=== PATIENT | male | born 1945 | race Two or more races ===

== ENCOUNTER 2019-09-26 13:11 | Inpatient (IN) | payer MEDICARE, OTHER ==
[~2019-09-26] VITALS: Ht 170.2 cm; Wt 91.6 kg
--- NOTE | 2019-09-26 13:23 | NUR ---
NICOLÁS FROM A [facility]. TO ER BED 12. AAOX1. NOT IN RESP DISTRESS, BREATHING EVEN AND UNLABORED. AMBULATORY. BROUGHT IN FOR ALTRERED MENTAL STATUS.PER EMS REPORT, PT IS BASELINE AAOX3. PT IS NOTED JITTERY, TWITCHING AND CANT STAY STILL. PT IS VERBALLY RESPONSIVE, COMPLIANT AND COOPERATIVE. PT IS C/O MID LOWER BACK PAIN. PT DENIES ANY DRUG USE. AWAITING MD FOR EVAL.
[2019-09-26] MEDS ORDERED: IV NS 0.9% 500 ML BAG IV ONE ×2 (13:30→17:30)
--- NOTE | 2019-09-26 13:37 | NUR ---
PT TO CT KRYSTIAN KNOX
[2019-09-26 13:48] LABS: CALCIUM, SERUM 8.7 mg/dL (8.5-10.1); CARBON DIOXIDE 26 mmol/L (21-32); CHLORIDE 104 mmol/L (98-107); CREATININE 1.4 mg/dL (0.6-1.3); GLUCOSE 177 mg/dL (74-106); POTASSIUM 3.3 mmol/L (3.5-5.1); SODIUM SERUM 141 mmol/L (136-145); UREA NITROGEN, BLOOD 27 mg/dL (7-18)
[2019-09-26 13:58] LABS: SERUM AMMONIA 16 umol/L (11-32)
[2019-09-26 13:59] LABS: ACETAMINOPHEN < 2 ug/ml (10-30); ALANINE AMINOTRANSFERASE 21 U/L (12-78); ALCOHOL, BLOOD < 3 mg/dL (0-0); ALKALINE PHOSPHATASE 115 U/L (46-116); ASPARTATE AMINOTRANSFERASE 33 U/L (15-37); BILIRUBIN,DIRECT 0.4 mg/dL (0.0-0.2); BILIRUBIN,TOTAL 1.9 mg/dL (0.2-1.0); SALICYLATE < 2.8 mg/dL (2.8-20.0); TOTAL PROTEIN, SERUM 7.5 g/dL (6.4-8.2)
--- NOTE | 2019-09-26 14:00 | NUR ---
UNABLE TO OBTAINED HEAD CT AND EKG D/T PT KEEPS MOVING ARROUND AND CANT STAY STILL. MD MADE AWARE AND VERBAL ORDER RECIEVED TO GIVE ATIVAN 1MG IV X 1 DOSE. NOTED AND WILL CARRY OUT
[2019-09-26] MEDS ORDERED: LORAZEPAM INJ 2 MG/ML VIAL IV ONE (14:30)
[2019-09-26 14:42] LABS: BASOPHILS # (AUTO) 0.1 /CMM (0.0-0.2); BASOPHILS % (AUTO) 0.4 % (0.0-2.0); EOSINOPHILS % (AUTO) 1.7 % (0.0-6.0); HEMATOCRIT 50 % (39-51); HEMOGLOBIN 16.6 g/dL (13.5-17.5); LYMPHOCYTES # (AUTO) 1.7 /CMM (0.8-4.8); MEAN CORPUSCULAR HGB CONC 33 g/dl (31.0-36.0); MEAN CORPUSCULAR VOLUME 86 fL (80-96); MONOCYTES # (AUTO) 1.4 /CMM (0.1-1.30); NEUTROPHILS # (AUTO) 13.6 /CMM (1.8-8.9); NEUTROPHILS % (AUTO) 79.9 % (43.0-81.0); PLATELET COUNT (AUTO) 286 /CMM (150-450); RED BLOOD CELL COUNT(AUTO) 5.78 MIL/uL (4.5-6.0)
--- NOTE | 2019-09-26 14:53 | NUR ---
MOVE SHEET SUBMITTED AND CALLED FOR TELE BED.
--- NOTE | 2019-09-26 14:58 | NUR ---
PT TO CT ON ABILIO
[2019-09-26] MEDS ORDERED: MIDAZOLAM HCL 2 MG/2ML VIAL IV ONE ×2 (15:00)
--- NOTE | 2019-09-26 15:09 | NUR ---
BACK FROM CT
[2019-09-26 15:21] LABS: MAGNESIUM 1.7 mg/dL (1.8-2.4)
--- NOTE | 2019-09-26 15:35 | NUR ---
URINE COLLECTED VIA IN AND OUT CATH WITH STRICT STERILE TECHNIQUE OBSERVED DURING PROCEDURE.
--- NOTE | 2019-09-26 15:55 | NUR ---
MAIRA CALLED ITS DR. HIGUERA
--- NOTE | 2019-09-26 16:51 | NUR ---
GOT A BED 105
[2019-09-26] MEDS ORDERED: ESCI10TA PO (16:56)
[2019-09-26] MEDS ORDERED: SITA100T PO (16:56)
[2019-09-26] MEDS ORDERED: LISI40TA4 PO (16:56)
[2019-09-26] MEDS ORDERED: ATOR20TA PO (16:56)
[2019-09-26] MEDS ORDERED: ERGO500014 MT (16:56)
[2019-09-26] MEDS ORDERED: TRAZ-252 PO (16:56)
[2019-09-26] MEDS ORDERED: METO-357 PO (16:56)
[2019-09-26] MEDS ORDERED: TAMS-12 PO (16:56)
[2019-09-26] MEDS ORDERED: FERR325T23 PO (16:56)
[2019-09-26] MEDS ORDERED: ZOLP5TAB8 PO (16:56)
[2019-09-26] MEDS ORDERED: MONT10TA22 PO (16:56)
[2019-09-26] MEDS ORDERED: MAGNESIUM OXIDE 400 MG TABLET PO ONE (17:00)
[2019-09-26] MEDS ORDERED: POTASSIUM CHLORIDE 20 MEQ TAB.PRT.SR PO ONE (17:00)
--- NOTE | 2019-09-26 17:20 | NUR ---
called to give report but no nurse is available.
--- NOTE | 2019-09-26 17:43 | NUR ---
REPORT GIVEN TO JUNE CHAPMAN FOR [place].
--- NOTE | 2019-09-26 17:54 | NUR ---
PT TRANSPORTED TO UNIT ON [facility] WITH EMT AND RN AT BEDSIDED W/ ACLS PROTOCOL. NAD NOTED DURING TRANSPORT. PT AMBULATED W/ ASSSIST FROM RNEY TO BED.
[2019-09-26 18:00] VITALS: BP 128/92
--- NOTE | 2019-09-26 18:00 | NUR ---
RN NOTES RECEIVED PT FROM ER IN ROOM 105, PT IS A/Ox1, CONFUSED , RESTLESS AND JITTERY . UNABLE TO STAY STILL , ON RA, O2 SAT WNL, EXPIRATORY WHEEZING NOTED, ON TELE SR HR IN 90'S, NO SKIN PROBLEM NOTED, R AC IV SITE G22 CLEAN, DRY AND INTACT, SR UP x3, CALL LIGHT WITHIN EASY REACH, BED LOCKED AND IN LOWEST POSITION, WILL ENDOSE TO MORTGAGE LOAN OFFICER NURSE FOR CONTINUITY OF CARE .
[2019-09-26] MEDS ORDERED: LACTULOSE 10 G/15 ML UDC (PYXIS) PO PRN (18:30)
[2019-09-26] MEDS ORDERED: ONDANSETRON HCL/PF 4 MG/2 ML VIAL IVP PRN (18:30)
[2019-09-26] MEDS ORDERED: MAGNESIUM HYDROXIDE 30 ML UDC PO PRN (18:30)
[2019-09-26] MEDS ORDERED: Z GUARD REMEDY 2 OZ OINT TP PRN (18:30)
[2019-09-26] MEDS ORDERED: DEXTROSE 50%-WATER 50 ML DISP.SYRIN IV PRN (18:30)
[2019-09-26] MEDS ORDERED: MAG HYDROX/AL HYDROX/SIMETH 30 ML UDC PO PRN (18:30)
[2019-09-26] MEDS ORDERED: ZOLPIDEM TARTRATE 5 MG TABLET PO PRN (18:30)
--- NOTE | 2019-09-26 19:10 | NUR ---
RN OPENING NOTES: Received pt resting in bed, A&ox1-2. On isolation precautions for Covid, pending results. On room air, O2 sat WNL. No SOB or respiratory distress noted. SR/ST on tele monitor. IV site on RAC #18 and PATRICIA #20 patent and flushing with bolus of NS infusing currently. Tolerating well. Dressings c/d/i. Will do head to toe assessment and skin check. Safety measures in place. Will continue to monitor.
[2019-09-26 20:00] VITALS: BP 144/98
[2019-09-26] MEDS ORDERED: POTASSIUM CHLORIDE 20 MEQ TAB.PRT.SR PO STA (20:35)
--- NOTE | 2019-09-26 20:35 | NUR ---
2034 KRISTEN ROMERO WAS NOTIFIED OF PATIENT'S FREQUENT PVCS WITH ORDER TO GIVE KCL 40 MEQ PO X 1. ORDER NOTED AND CARRIED OUT.
[2019-09-26] MEDS: THIAMINE HCL 100 MG TABLET PO SCH (20:55)
[2019-09-26] MEDS: LORAZEPAM INJ 2 MG/ML VIAL IV PRN (20:55)
[2019-09-26] MEDS: FOLIC ACID 1 MG TABLET PO SCH (20:55)
--- NOTE | 2019-09-26 21:12 | NUR ---
RN NOTE: In pt's room to administer stat KCl order, pt stating, "Let me touch you" while reaching out to touch me. Explained that is not appropriate. He proceeded to ask "Can you stroke it a little? You know if you touch it it will get hard." Explained again that this is not appropriate behavior. Will continue to monitor.
[2019-09-26] MEDS: TAMSULOSIN 0.4 MG CAP.SR.24H PO SCH (22:23)
[2019-09-26] MEDS: ATORVASTATIN 10 MG TABLET PO SCH (22:23)
[2019-09-26] MEDS: BLOOD SUGAR DIAGNOSTIC 1 EACH STRIP IN SCH (22:42)
--- NOTE | 2019-09-26 22:48 | NUR ---
RN NOTE: Pt continues to move arm and kink line where IV bolus is infusing. Started a new line on LH #20 patent and flushed.
[2019-09-26] MEDS: IV D5/0.45 NACL 1,000 ML IV PRN (23:23)
--- NOTE | 2019-09-26 23:46 | NUR ---
RN NOTE: Pt attempting to climb out of bed, removing gown, removing NC and agitated after receiving Ativan and Ambien PRNs. Paged Devika, glue bone drier and received orders for restraints. Restraints placed. Will continue to monitor.
[2019-09-27] VITALS: BP 131/85
[2019-09-27] MEDS: LORAZEPAM INJ 2 MG/ML VIAL IV PRN ×2 (01:20→10:07)
[2019-09-27 04:00] VITALS: BP 116/59
--- NOTE | 2019-09-27 06:44 | NUR ---
RN CLOSING NOTES: Pt remains on 2LPM NC, tolerating well. Isolation precautions still in place. No SOB or respiratory distress noted throughout shift. No acute changes noted throughout shift. SR with couplet PVC on tele monitor. IVF of D5 1/2NS infusing in RH at 75ml/hr tolerating well. Kept clean and dry. All meds administered as ordered. Safety measures in place. Will endorse to AM nurse for [place].
[2019-09-27 06:57] LABS: BASOPHILS # (AUTO) 0.1 /CMM (0.0-0.2); BASOPHILS % (AUTO) 0.5 % (0.0-2.0); EOSINOPHILS % (AUTO) 0.7 % (0.0-6.0); HEMATOCRIT 43 % (39-51); LYMPHOCYTES # (AUTO) 1.2 /CMM (0.8-4.8); LYMPHOCYTES % (AUTO) 9.7 % (20.0-44.0); MEAN CORPUSCULAR HGB CONC 33 g/dl (31.0-36.0); MEAN CORPUSCULAR VOLUME 86 fL (80-96); NEUTROPHILS % (AUTO) 81.1 % (43.0-81.0); PLATELET COUNT (AUTO) 199 /CMM (150-450); RED BLOOD CELL COUNT(AUTO) 4.97 MIL/uL (4.5-6.0); WHITE BLOOD COUNT (AUTO) 12.3 K/uL (4.3-11.0)
[2019-09-27 07:11] LABS: THYROID STIMULATING HORMONE 0.636 uIU/mL (0.358-3.74)
[2019-09-27 07:15] LABS: CALCIUM, SERUM 7.9 mg/dL (8.5-10.1); CREATININE 1.2 mg/dL (0.6-1.3); MAGNESIUM 1.9 mg/dL (1.8-2.4); PHOSPHORUS 2.8 mg/dL (2.5-4.9); POTASSIUM 3.8 mmol/L (3.5-5.1)
[2019-09-27 08:00] VITALS: BP 136/73
[2019-09-27] MEDS: BLOOD SUGAR DIAGNOSTIC 1 EACH STRIP IN SCH ×4 (08:10→21:36)
[2019-09-27] MEDS: PANTOPRAZOLE 40 MG TABLET.DR PO SCH (08:11)
[2019-09-27] MEDS: THIAMINE HCL 100 MG TABLET PO SCH (08:35)
[2019-09-27] MEDS: LINAGLIPTIN 5 MG TABLET PO SCH (08:35)
[2019-09-27] MEDS: FERROUS SULFATE (325 MG) 325 MG/TAB TABLET PO SCH (08:35)
[2019-09-27] MEDS: MONTELUKAST SODIUM (10MG) 10 MG TABLET PO SCH (08:35)
[2019-09-27] MEDS: LISINOPRIL (20MG) 20 MG TABLET PO SCH (08:37)
[2019-09-27] MEDS: INSULIN REGULAR, HUMAN 100 UNIT/ML 3 ML VIAL SQ PRN ×3 (08:46→21:38)
[2019-09-27] MEDS ORDERED: SITAGLIPTIN PHOSPHATE 50 MG TABLET PO SCH (09:00)
--- NOTE | 2019-09-27 09:01 | NUR ---
RN OPENING NOTES: RECEIVED PT IN BED, NO SIGNS OF RESPIRATORY DISTRESS, BREATHING EVEN AND LABORED, PT IS ON NC 2L WITH O2 98%. PT IS A/O X 3, ON TELE MONITOR SR-ST. IV R AC #18, R UPPER #20. PTS BED IS IN THE LOWEST POSITION, LOCKED SIDE RAILS ARE UP, CALL LIGHT IS WITHIN REACH, PT IS WITH THE SITTER. WILL CONTINUE TO MONITOR CLOSELY.
[2019-09-27] MEDS: FOLIC ACID 1 MG TABLET PO SCH (09:13)
--- NOTE | 2019-09-27 11:08 | NUR ---
RN NOTE ENDORSED TO ESTEFANI WATKINS FOR [place]
--- NOTE | 2019-09-27 11:15 | NUR ---
RN NOTE ENDORSED BY GLEN WATKINS , RECEIVED PT IN BED, NO SIGNS OF RESPIRATORY DISTRESS, BREATHING EVEN AND LABORED, PT IS ON NC 2L WITH O2 98%. PT IS A/O X 3, ON TELE MONITOR SR-ST. IV R AC #18, R UPPER #20. PTS BED IS IN THE LOWEST POSITION, LOCKED SIDE RAILS ARE UP, CALL LIGHT IS WITHIN REACH, PT IS WITH THE SITTER. WILL CONTINUE TO MONITOR CLOSELY.
[2019-09-27 12:00] VITALS: BP 106/60
[2019-09-27] MEDS: IV D5/0.45 NACL 1,000 ML IV PRN (12:30)
--- NOTE | 2019-09-27 13:08 | NUR ---
GEOMETRY PROFESSOR conducted chart review and noticed no psych consult order has been placed. GEOMETRY PROFESSOR called JOSE ALFREDO PALMA Mcclellan and informed her regarding no psych consult order. PALAM Mcclellan to f/u with Dr. Boyd to place an order for a psych consult.
[2019-09-27 16:00] VITALS: BP 121/68
--- NOTE | 2019-09-27 19:05 | NUR ---
RN CLOSING NOTES: WILL ENDORSED TO PM NURSE FOR [place]. PATIENT IN BED COMFORTABLE , A/0X 2, PATIENT ON NC 2L SATURATING @ 98%, TOLERATING WELL. NO S/S OF RESPIRATORY DISTRESS THROUGHOUT SHIFT. TELE MONITOR READING SR W/ COUPLET PVC. IV ACCESS LEFT HAND # 20 RUNNING D5 1/2 NS @ at 75ML/HR TOLERATING WELL. SAFETY MEASURES IN PLACE, BED LOCKED IN LOWEST POSITION . CALL LIGHT WITHIN EASY REACH .
[2019-09-27 20:00] VITALS: BP 145/77
[2019-09-27] MEDS: ACETAMINOPHEN 325 MG TABLET PO PRN (20:19)
[2019-09-27] MEDS: ATORVASTATIN 10 MG TABLET PO SCH (21:29)
[2019-09-27] MEDS: HYDROCODONE/APAP 5/325MG 1 EACH TABLET PO PRN (21:29)
[2019-09-27] MEDS: TAMSULOSIN 0.4 MG CAP.SR.24H PO SCH (21:30)
--- NOTE | 2019-09-27 22:15 | NUR ---
RN NOTES RELAY TO GONZÁLEZ KANG ASSOCIATE JUSTICE ABOUT THE EPISODE OF PVC OF THE PT, WITH NO NEW ORDER BECAUSE DR. ARROYO ALREADY AWARE OF THE PVC JUST WAITING FOR COVID TEST TO BE NEG THEN WE WILL DO ECHOCARDIOGRAM TO THE PT
[2019-09-28] VITALS: BP 135/75
[2019-09-28] MEDS: IV D5/0.45 NACL 1,000 ML IV PRN ×2 (02:08→16:34)
[2019-09-28] MEDS: HYDROCODONE/APAP 5/325MG 1 EACH TABLET PO PRN ×5 (03:12→23:23)
[2019-09-28] MEDS ORDERED: MORPHINE SULFATE INJ 2 MG/ML DISP.SYRIN IV ONE (03:30)
--- NOTE | 2019-09-28 03:50 | NUR ---
RN NOTES REPORTED TO GONZÁLEZ KANG SOCIAL STAFF WORKER THAT THE PT STILL ON PAIN AFTER GIVING NORCO AND HIS KNEE IS SWOLLEN AND WARM TO TOUCH, DIRECTOR OF MEDICAL REVIEW DOCTOR MADE AN ORDER FOR MORPHINE 2MG IV X1 NOW NOTED AND CARRIED OUT
[2019-09-28 04:00] VITALS: BP 128/71
[2019-09-28 06:45] LABS: CREATININE 1.2 mg/dL (0.6-1.3); MAGNESIUM 1.7 mg/dL (1.8-2.4); PHOSPHORUS 2.7 mg/dL (2.5-4.9); POTASSIUM 3.6 mmol/L (3.5-5.1)
[2019-09-28 06:46] LABS: BASOPHILS # (AUTO) 0.1 /CMM (0.0-0.2); BASOPHILS % (AUTO) 0.5 % (0.0-2.0); EOSINOPHILS % (AUTO) 0.7 % (0.0-6.0); HEMATOCRIT 42 % (39-51); HEMOGLOBIN 13.6 g/dL (13.5-17.5); LYMPHOCYTES # (AUTO) 1.5 /CMM (0.8-4.8); LYMPHOCYTES % (AUTO) 13.9 % (20.0-44.0); MEAN CORPUSCULAR HGB CONC 33 g/dl (31.0-36.0); MEAN CORPUSCULAR VOLUME 88 fL (80-96); MONOCYTES % (AUTO) 18.6 % (2.0-12.0); NEUTROPHILS # (AUTO) 7.2 /CMM (1.8-8.9); NEUTROPHILS % (AUTO) 66.3 % (43.0-81.0); PLATELET COUNT (AUTO) 183 /CMM (150-450); RED BLOOD CELL COUNT(AUTO) 4.71 MIL/uL (4.5-6.0); WHITE BLOOD COUNT (AUTO) 10.9 K/uL (4.3-11.0)
--- NOTE | 2019-09-28 06:46 | NUR ---
RN CLOSING NOTES PT ON BED ASLEEP EASY TO AWAKE NO SIGN AND SYMPTOMS OF RESPIRATORY DISTRESS, SPO2 >99% TELE MONITOR READS SINUS RHYTHM WITH PVC AND BIGEMINAL PVC'S NO SIGNIFICANT CHANGES ON CONDITION NOTED ALL NEEDS ATTENDED DROPLET ISOLATION MAINTAINED SAFETY MEASURE OBSERVED WILL ENDORSED TO AM SHIFT NURSE
--- NOTE | 2019-09-28 06:52 | NUR ---
RN NOTES DR. ARROYO MADE AWARE OF THE EPISODES OF PVC'S LAST NIGHT AND SOME CUPLETS WITH NO NEW ORDER WILL ENDORSED TO AM SHIFT NURSE
--- NOTE | 2019-09-28 07:26 | NUR ---
RN OPENING NOTES: RECEIVED PATIENT IN BED SLEEPING. PT O2 98% ON 2L. PT DID NOT SHOW ANY SIGNS OF RESPIRATORY DISTRESS, BREATHING EVEN AND UNLABORED. TELE MONITOR SR. PT IS A/O X2. IV LH #20. PT IS WITH THE SITTER. PATIENTS SAFETY IS MAINTAINED CALL LIGHT WITHIN REACH. WILL MONITOR CLOSELY.
[2019-09-28 07:37] LABS: EOSINOPHILS % (MANUAL) 1 % (0-4); LYMPHOCYTES % (MANUAL) 17 % (16-48); MONOCYTES % (MANUAL) 17 % (0-11.0); NEUTROPHILS % (MANUAL) 65 (42-76)
[2019-09-28] MEDS ORDERED: Magnesium 1GM/D5W 100ML PREMIX 50 ML IV SCH (07:54)
[2019-09-28 08:00] VITALS: BP 122/93
[2019-09-28] MEDS: BLOOD SUGAR DIAGNOSTIC 1 EACH STRIP IN SCH ×4 (08:21→22:54)
[2019-09-28] MEDS: FOLIC ACID 1 MG TABLET PO SCH (08:22)
[2019-09-28] MEDS: THIAMINE HCL 100 MG TABLET PO SCH (08:22)
[2019-09-28] MEDS: PANTOPRAZOLE 40 MG TABLET.DR PO SCH (08:22)
[2019-09-28] MEDS: FERROUS SULFATE (325 MG) 325 MG/TAB TABLET PO SCH (08:22)
[2019-09-28] MEDS: LINAGLIPTIN 5 MG TABLET PO SCH (08:22)
[2019-09-28] MEDS: MONTELUKAST SODIUM (10MG) 10 MG TABLET PO SCH (08:23)
[2019-09-28] MEDS: LISINOPRIL (20MG) 20 MG TABLET PO SCH (08:48)
[2019-09-28] MEDS: INSULIN REGULAR, HUMAN 100 UNIT/ML 3 ML VIAL SQ PRN ×4 (08:51→22:01)
--- NOTE | 2019-09-28 08:59 | NUR ---
RN NOTE CLARIFIED WITH PHARMACY TO RUN MAGNESIUM AT 100MLS/HR. 1GM OVER 1HR. WILL RUN ORDERED. SAFETY MAINTAINED, CALL LIGHT WITHIN REACH, WILL CONTINUE TO MONITOR CLOSELY.
[2019-09-28] MEDS: LORAZEPAM INJ 2 MG/ML VIAL IV PRN (11:37)
[2019-09-28] MEDS: ESCITALOPRAM OXALATE (10 MG) 10 MG TABLET PO SCH (11:54)
[2019-09-28 12:00] VITALS: BP 126/87
--- NOTE | 2019-09-28 14:57 | NUR ---
RN NOTE PATIENT IS RESTING COMFORTABLY IN BED. NO LONGER REQUIRES A SITTER. PATIENT IS COOPERATIVE WITH THE PLAN OF CARE, MAKES NEEDS KNOWN, ALL SCHEDULED MEDICATIONS TAKEN. DOES NOT ATTEMPT TO GET OUT OF BED, KNOWS THAT HE IS IN A HOSPITAL. SAFETY MAINTAINED, CALL LIGHT WITHIN REACH, WILL CONTINUE TO MONITOR CLOSELY.
[2019-09-28] MEDS ORDERED: HALOPERIDOL 1 MG TABLET PO PRN (15:30)
[2019-09-28] MEDS ORDERED: HALOPERIDOL 5 MG TABLET PO PRN (15:30)
[2019-09-28 16:00] VITALS: BP 121/73
[2019-09-28] MEDS: HALOPERIDOL 1 MG TABLET PO SCH (16:34)
--- NOTE | 2019-09-28 18:59 | NUR ---
RN CLOSING NOTES: PT IN BED SLEEPING. PT DID NOT SHOW ANY SIGNS OF RESPIRATORY DISTRESS, BREATHING EVEN AND UNLABORED. PT DID NOT SHOW ANY SIGNS OF PAIN. SAFETY MEASURES TAKEN CALL LIGHT WITHIN REACH. ENDORSED TO THE PM NURSE.
[2019-09-28 20:00] VITALS: BP 126/79
--- NOTE | 2019-09-28 20:37 | NUR ---
RN OPENING NOTE PT IN BED A/O X 1, ON O2 2 L/MIN VIA NC, TOLERATING WELL. DENIES PAIN AT THIS TIME. IV TO LEFT HAND PATENT INTACT AND FLUSHING WELL. CURRENTLY SINUS RHYTHM WITH PVC'S. SAFETY MEASURES IN PLACE, CALL LIGHT WITHIN REACH. BED LOCKED AND IN LOWEST POSITION, SIDE RAILS UP X 2. WILL CONTINUE TO MONITOR PT.
[2019-09-28] MEDS: TAMSULOSIN 0.4 MG CAP.SR.24H PO SCH (21:47)
[2019-09-28] MEDS: ATORVASTATIN 10 MG TABLET PO SCH (21:47)
[2019-09-28] MEDS: TRAZODONE 50 MG TABLET PO SCH (21:47)
[2019-09-29] VITALS (8 sets, daily range): BP systolic 104–138; BP diastolic 55–90
[2019-09-29] MEDS: ACETAMINOPHEN 325 MG TABLET PO PRN (03:49)
--- NOTE | 2019-09-29 04:30 | NUR ---
RN NOTE. TEMPERATURE NOW 99.4 AFTER TYLENOL WAS GIVEN.
[2019-09-29 06:25] LABS: BASOPHILS % (AUTO) 0.1 % (0.0-2.0); EOSINOPHILS % (AUTO) 0.7 % (0.0-6.0); HEMATOCRIT 42 % (39-51); HEMOGLOBIN 13.8 g/dL (13.5-17.5); LYMPHOCYTES # (AUTO) 1.2 /CMM (0.8-4.8); LYMPHOCYTES % (AUTO) 10.5 % (20.0-44.0); MEAN CORPUSCULAR HGB CONC 33 g/dl (31.0-36.0); MEAN CORPUSCULAR VOLUME 87 fL (80-96); MONOCYTES # (AUTO) 1.7 /CMM (0.1-1.30); MONOCYTES % (AUTO) 14.9 % (2.0-12.0); NEUTROPHILS # (AUTO) 8.2 /CMM (1.8-8.9); NEUTROPHILS % (AUTO) 73.8 % (43.0-81.0); PLATELET COUNT (AUTO) 176 /CMM (150-450); RED BLOOD CELL COUNT(AUTO) 4.87 MIL/uL (4.5-6.0); WHITE BLOOD COUNT (AUTO) 11.1 K/uL (4.3-11.0)
[2019-09-29 06:39] LABS: ALBUMIN 2.8 g/dL (3.4-5.0); BILIRUBIN,TOTAL 2.2 mg/dL (0.2-1.0); CREATININE 1.3 mg/dL (0.6-1.3); MAGNESIUM 1.9 mg/dL (1.8-2.4); PHOSPHORUS 2.1 mg/dL (2.5-4.9); POTASSIUM 3.4 mmol/L (3.5-5.1); TOTAL PROTEIN, SERUM 6.3 g/dL (6.4-8.2)
--- NOTE | 2019-09-29 06:40 | NUR ---
RN CLOSING NOTE PT AWAKE WITH HOB ELEVATED ON O2 2 L/MIN VIA NC, TOLERATING WELL. DENIES PAIN AT THIS TIME. IV TO LEFT HAND PATENT INTACT AND FLUSHING WELL D5NS INFUSING AT 75 ML/HR. PT SINUS SINUS RHYTHM WITH PVC'S AND BIGEMINY. SAFETY MEASURES IN PLACE, CALL LIGHT WITHIN REACH. BED LOCKED AND IN LOWEST POSITION, SIDE RAILS UP X 3. ENDORSED TO AM RN FOR [place]
--- NOTE | 2019-09-29 07:25 | NUR ---
RN OPENING NOTES: RECEIVED PT IN BED SLEEPING, EASY TO AROUSE. NO SIGNS OF RESPIRATORY DISTRESS OR DIFFICULTY BREATHING. NO SIGNS OF PAIN, BREATHING EVEN AND UNLABORED. PT IS ON NC 3L, O2 97%, ON TELE MONITOR SR, PT IS A/O X1. LH #20,INTACT, FLUSHED WELL NO SIGNS OF INFILTRATION. SAFETY MEASURES TAKEN, CALL LIGHT WITHIN REACH, WILL CONTINUE TO MONITOR CLOSELY.
[2019-09-29] MEDS: THIAMINE HCL 100 MG TABLET PO SCH (08:07)
[2019-09-29] MEDS: MONTELUKAST SODIUM (10MG) 10 MG TABLET PO SCH (08:07)
[2019-09-29] MEDS: PANTOPRAZOLE 40 MG TABLET.DR PO SCH (08:07)
[2019-09-29] MEDS: LINAGLIPTIN 5 MG TABLET PO SCH (08:07)
[2019-09-29] MEDS: FOLIC ACID 1 MG TABLET PO SCH (08:07)
[2019-09-29] MEDS: ESCITALOPRAM OXALATE (10 MG) 10 MG TABLET PO SCH (08:07)
[2019-09-29] MEDS: FERROUS SULFATE (325 MG) 325 MG/TAB TABLET PO SCH (08:07)
[2019-09-29] MEDS: LISINOPRIL (20MG) 20 MG TABLET PO SCH (08:07)
[2019-09-29] MEDS: HALOPERIDOL 1 MG TABLET PO SCH ×2 (08:07→16:10)
[2019-09-29] MEDS: BLOOD SUGAR DIAGNOSTIC 1 EACH STRIP IN SCH ×4 (08:08→22:26)
[2019-09-29] MEDS: INSULIN REGULAR, HUMAN 100 UNIT/ML 3 ML VIAL SQ PRN ×4 (08:31→22:27)
[2019-09-29] MEDS: HYDROCODONE/APAP 5/325MG 1 EACH TABLET PO PRN ×2 (09:48→18:35)
--- NOTE | 2019-09-29 12:42 | NUR ---
RN NOTE PATIENT COVID RESULTS CAME BACK NEGATIVE. NOTIFIED. OK TO TRANSFER PATIENT TO MED-SURG. FOLLOWED ORDER. PATIENT TRANSFERRED TO [facility] BED [facility]-2, REPORT GIVEN TO JEREMY WATKINS FOR [place]. ALL PATIENT NEEDS MET, CALL LIGHT WITHIN REACH, ENDORSED PATIENT FOR CONTINUITY OF CARE.
--- NOTE | 2019-09-29 12:45 | NUR ---
RN NOTES PATIENT TRANSFERRED FROM JOSE ALFREDO MALE 74Y/OLD TELE HR-92 TO 95. REPORT GET FROM JOSE ALFREDO RN. V/S TAKEN BP 122/55, P-84, R-21, T-99.4, O2-3LNC. PATIENT WAS COMPLAINING OF PAIN ON BLE 08/09 PER PATIENT REQUEST, SWOLLEN RIGHT KNEE, USING URINAL. PATIENT STABLE NO SOB, DIMINISHED DAVID SOUNDS.CALL LIGHT WITHIN TO REACH. SAFETY PRECAUTION MAINTAINED ALL THE TIME.
--- NOTE | 2019-09-29 13:00 | NUR ---
RN NOTES SEEN PATIENT BT PSYCHIATRIST FOLLOW UP, NO NEW ORDERS.
[2019-09-29] MEDS ORDERED: POTASSIUM CHLORIDE 20 MEQ TAB.PRT.SR PO SCH (16:00)
[2019-09-29] MEDS ORDERED: K PHOS NEUTRAL 250 MG TABLET PO ONE (16:00)
--- NOTE | 2019-09-29 18:36 | NUR ---
RN NOTES PATIENT IN THE BED EATING, ADMINISTERED NARCO 5/325 MG PO PRN FOR GENERALIZED PAIN 09/08 PER PATIENT REQUEST BS-214 MG/DL COVERAGE GIVEN, ALSO ADMINISTERED SCHEDULED MEDICATION. PATIENT ON O2-3L NC. ASSIST TURN AND REPOSTION Q 2 HR. , USING URINAL. CALL LIGHT WITHIN TO REACH. ENDORSED ONCOMING NURSE FOLLOW PLAN OF CARE.
--- NOTE | 2019-09-29 19:40 | NUR ---
MS RN OPENING NOTES PATIENT RECEIVED RESTING IN BED A/O X 2. ON 3L OF O2 WITH BREATHING EVEN AND UNLABORED, NO SOB NOTED. NO SIGNS OF ACUTE DISTRESS. NO COMPLAINTS OF PAIN OR DISCOMFORT. IV LOCATED ON L HAND # 20 S/L. SAFETY PRECAUTIONS IN PLACE WITH BED IN LOWEST POSITION, CALL LIGHT WITHIN REACH, BREAKS ON, SIDE RAILS UP. WILL CONTINUE TO MONITOR THROUGH OUT THE SHIFT.
[2019-09-29] MEDS: TRAZODONE 50 MG TABLET PO SCH (21:04)
[2019-09-29] MEDS: ATORVASTATIN 10 MG TABLET PO SCH (21:05)
[2019-09-29] MEDS: TAMSULOSIN 0.4 MG CAP.SR.24H PO SCH (21:05)
--- NOTE | 2019-09-29 21:23 | NUR ---
MS RN NOTES COVID TEST DONE, SENT TO LAB.
--- NOTE | 2019-09-29 23:01 | NUR ---
MS RN NOTES LAB CALLED, COVID TEST RECEIVED NEGATIVE
--- NOTE | 2019-09-30 05:34 | NUR ---
MS RN NOTES URINE COLLECTED, CALLED LAB TO SKETCHER.
[2019-09-30 06:05] LABS: APPEARANCE,URINE CLEAR (CLEAR); BILIRUBIN,URINE NEGATIVE (NEGATIVE); BLOOD, URINE MODERATE Ery/uL (NEGATIVE); COLOR,URINE YELLOW (YELLOW); KETONES,URINE 15 (NEGATIVE); LEUKOCYTE ESTERASE ,URINE NEGATIVE (NEGATIVE); NITRITE, URINE NEGATIVE (NEGATIVE); PROTEIN,URINE 100 mg/dl (NEGATIVE); UGLUCOSE NEGATIVE (NEGATIVE); UROBILINOGEN,URINE 0.2 EU/dL (0.2)
[2019-09-30 06:18] LABS: BACTERIA,URINE Many /HPF (None Seen); SQUAMOUS EPITHELIAL CELL,UR Rare /HPF (None Seen); WBC,URINE 0-2 /HPF (0-3)
[2019-09-30] MEDS: BLOOD SUGAR DIAGNOSTIC 1 EACH STRIP IN SCH ×4 (06:37→21:40)
[2019-09-30] MEDS: INSULIN REGULAR, HUMAN 100 UNIT/ML 3 ML VIAL SQ PRN ×4 (06:39→21:42)
--- NOTE | 2019-09-30 06:45 | NUR ---
MS RN CLOSING NOTES PATIENT RESTING IN BED A/O X 2. ON 4L OF O2 WITH BREATHING EVEN AND UNLABORED, NO SOB NOTED. NO SIGNS OF ACUTE DISTRESS. NO COMPLAINTS OF PAIN OR DISCOMFORT AT THE MOMENT. IV LOCATED ON L HAND # 20 S/L. SAFETY PRECAUTIONS IN PLACE WITH BED IN LOWEST POSITION, CALL LIGHT WITHIN REACH, BREAKS ON, SIDE RAILS UP. ALL NEEDS ATTENDED TO. WILL ENDORSE TO ONCOMING SHIFT ABOUT [place].
[2019-09-30 07:07] LABS: HIV SCRN 4G wRFX Non Reactive (Non Reactive)
[2019-09-30 07:16] LABS: CALCIUM, SERUM 8.7 mg/dL (8.5-10.1); CREATININE 1.3 mg/dL (0.6-1.3); PHOSPHORUS 2.3 mg/dL (2.5-4.9); POTASSIUM 3.9 mmol/L (3.5-5.1)
--- NOTE | 2019-09-30 07:47 | NUR ---
rn notes patient received on 2L nasal cannula, no sob noted, patient denies pain at this time. L hand 20 present. bed at the lowest setting, call light within reach, side rails up x2.
[2019-09-30] MEDS: MONTELUKAST SODIUM (10MG) 10 MG TABLET PO SCH (08:20)
[2019-09-30] MEDS: HALOPERIDOL 1 MG TABLET PO SCH ×2 (08:20→16:58)
[2019-09-30] MEDS: PANTOPRAZOLE 40 MG TABLET.DR PO SCH (08:20)
[2019-09-30] MEDS: LISINOPRIL (20MG) 20 MG TABLET PO SCH (08:20)
[2019-09-30] MEDS: ESCITALOPRAM OXALATE (10 MG) 10 MG TABLET PO SCH (08:21)
[2019-09-30] MEDS: LINAGLIPTIN 5 MG TABLET PO SCH (08:21)
[2019-09-30] MEDS: FERROUS SULFATE (325 MG) 325 MG/TAB TABLET PO SCH (08:21)
[2019-09-30] MEDS: FOLIC ACID 1 MG TABLET PO SCH (08:21)
[2019-09-30] MEDS: THIAMINE HCL 100 MG TABLET PO SCH (08:21)
[2019-09-30 08:23] VITALS: BP 149/99
--- NOTE | 2019-09-30 10:06 | NUR ---
WOUND CARE CONSULT: PT PRESENTS WITH RAISED CALLUS TO LEFT PLANTAR FOOT. PT STATES HAS BEEN THERE FOR SOME TIME. RECOMMEND DPM CONSULT. DR GAMEZ NOTIFIED OF CONSULT REQUEST. PT IS CONTINENT AND INDEPENDENT WITH BED MOBILITY. WILL SEE PRMyrtle HOUSTON IN AGREEMENT WITH PLAN OF CARE.
[2019-09-30] MEDS: HYDROCODONE/APAP 5/325MG 1 EACH TABLET PO PRN (11:47)
[2019-09-30] MEDS ORDERED: NEUTRA PHOS 1 POWD.PACKET PO ONE (14:00)
[2019-09-30 15:46] VITALS: BP 107/64
--- NOTE | 2019-09-30 18:12 | NUR ---
rn closing notes patient remains on 2L nasal cannula, no sob noted, patient denies pain at this time. L hand 20 present. bed at the lowest setting, call light within reach, side rails up x2.
[2019-09-30] MEDS ORDERED: FEE PK DOSING 1 MIN EA MC ONE (19:14)
--- NOTE | 2019-09-30 19:37 | NUR ---
MS RN OPENING NOTES RECEIVED PATIENT RESTING IN BED COMFORTABLY; A/OX2; BREATHING EVEN AND UNLABORED; PATIENT ON 2LPM VIA NC; SATTING 96%; NO SOB; L HAND #24 INTACT AND PATENT; FLUSHING WELL; NO S/S OF REDNESS OR INFILTRATION NOTED; SAFETY PRECAUTIONS IMPLEMENTED; BED LOCKED IN LOW POSITION; SIDE RAILSX2; CALL LIGHT WITHIN REACH; WILL CONT TO MONITOR
[2019-09-30 20:00] VITALS: BP 142/93
--- NOTE | 2019-09-30 20:00 | NUR ---
MS RN NOTES SPOKE WITH PHARMACY REGARDING VANCO FOR PATIENT; PER EARLY CHILDHOOD SERVICES COORDINATOR, WILL SEND UP VANCO PRIOR TO LEAVING; STILL AWAITING PHARMACY TO BRING UP VANCO IV MED UP FOR PATIENT; UNABLE TO START VANCO AT THIS TIME; CHARGE NURSE AWARE
[2019-09-30] MEDS: VANCOMYCIN 1 GM in IV D5W 250ml IV SCH (20:44)
[2019-09-30] MEDS: ATORVASTATIN 10 MG TABLET PO SCH (21:40)
[2019-09-30] MEDS: TAMSULOSIN 0.4 MG CAP.SR.24H PO SCH (21:40)
[2019-09-30] MEDS: TRAZODONE 50 MG TABLET PO SCH (21:40)
[2019-10-01] MEDS ORDERED: ALBUTEROL FS 2.5 MG/3 ML VIAL.NEB NEB PRN (01:30)
--- NOTE | 2019-10-01 05:01 | NUR ---
MS RN NOTES PATIENT REMOVED IV; IV TIP INTACT; NO S/S OF BLEEDING; PATIENT REFUSING IV ACCESS AT THIS TIME; CHARGE NURSE AWARE; WILL CONT TO MONITOR
[2019-10-01] MEDS: BLOOD SUGAR DIAGNOSTIC 1 EACH STRIP IN SCH ×4 (06:47→22:23)
--- NOTE | 2019-10-01 06:47 | NUR ---
MS RN NOTES IV ACCESS OBTAINED; R HAND #20 INTACT AND PATENT, FLUSHING WELL; NO S/S OF REDNESS OR INFILTRATION NOTED;
[2019-10-01] MEDS: INSULIN REGULAR, HUMAN 100 UNIT/ML 3 ML VIAL SQ PRN ×4 (06:50→22:28)
--- NOTE | 2019-10-01 07:00 | NUR ---
MS RN CLOSING NOTES PATIENT RESTING IN BED COMFORTABLY; A/OX2-3; WHEEZING HEARD, PATIENT ON 4LPM VIA NC; TOLERATING WELL; PATIENT AGREED FOR IV ACCESS; R HAND #20 INTACT AND FLUSHING WELL; NO S/S OF REDNESS OR INFILTRATION NOTED; WRAPPED SAUNDRA, CHARGE NURSE AWARE; ALL NEEDS RENDERED; BED LOCKED IN LOW POSITION; SIDE RAILSX2; CALL LIGHT WITHIN REACH; WILL ENDORSE [place] TO ONCOMING SHIFT
[2019-10-01 08:00] VITALS: BP 130/74
[2019-10-01] MEDS: ESCITALOPRAM OXALATE (10 MG) 10 MG TABLET PO SCH (08:10)
[2019-10-01] MEDS: FOLIC ACID 1 MG TABLET PO SCH (08:10)
[2019-10-01] MEDS: LINAGLIPTIN 5 MG TABLET PO SCH (08:10)
[2019-10-01] MEDS: PANTOPRAZOLE 40 MG TABLET.DR PO SCH (08:10)
[2019-10-01] MEDS: LISINOPRIL (20MG) 20 MG TABLET PO SCH (08:10)
[2019-10-01] MEDS: MONTELUKAST SODIUM (10MG) 10 MG TABLET PO SCH (08:10)
[2019-10-01] MEDS: FERROUS SULFATE (325 MG) 325 MG/TAB TABLET PO SCH (08:10)
[2019-10-01] MEDS: HALOPERIDOL 1 MG TABLET PO SCH ×2 (08:10→16:06)
[2019-10-01] MEDS: THIAMINE HCL 100 MG TABLET PO SCH (08:10)
[2019-10-01] MEDS: VANCOMYCIN 1 GM in IV D5W 250ml IV SCH ×2 (08:12→20:35)
[2019-10-01 08:31] LABS: BASOPHILS % (AUTO) 0.1 % (0.0-2.0); EOSINOPHILS % (AUTO) 0.1 % (0.0-6.0); HEMATOCRIT 39 % (39-51); HEMOGLOBIN 12.6 g/dL (13.5-17.5); LYMPHOCYTES # (AUTO) 1.1 /CMM (0.8-4.8); LYMPHOCYTES % (AUTO) 9.3 % (20.0-44.0); MEAN CORPUSCULAR HGB CONC 33 g/dl (31.0-36.0); MEAN CORPUSCULAR VOLUME 86 fL (80-96); MONOCYTES # (AUTO) 1.4 /CMM (0.1-1.30); MONOCYTES % (AUTO) 12.4 % (2.0-12.0); NEUTROPHILS # (AUTO) 8.9 /CMM (1.8-8.9); NEUTROPHILS % (AUTO) 78.1 % (43.0-81.0); PLATELET COUNT (AUTO) 263 /CMM (150-450); RED BLOOD CELL COUNT(AUTO) 4.51 MIL/uL (4.5-6.0); WHITE BLOOD COUNT (AUTO) 11.4 K/uL (4.3-11.0)
[2019-10-01 08:55] LABS: CALCIUM, SERUM 8.4 mg/dL (8.5-10.1); MAGNESIUM 1.8 mg/dL (1.8-2.4); PHOSPHORUS 2.6 mg/dL (2.5-4.9); POTASSIUM 3.8 mmol/L (3.5-5.1)
[2019-10-01 16:00] VITALS: BP 126/66
--- NOTE | 2019-10-01 17:14 | NUR ---
rn notes patient remains on 2L nasal cannula, no sob noted, patient denies pain at this time. L hand 20 present. bed at the lowest setting, call light within reach, side rails up x2. Plan is to dc patient once culture results are back.
--- NOTE | 2019-10-01 19:45 | NUR ---
RN OPENING NOTE RECEIVED PATIENT IN BED RESTING ALERT ORIENTED X2 VERBALLY RESPONSIVE,BREATHING IS SOB ON 2L OXYGEN VIA NASAL CANNULA,O2:95% CONTINUE TO MONITOR,IV SITE IS ON LEFT FOREARM,INTACT PATENT,CALL LIGHT WITHIN REACH,BED IN LOWEST POSITION,IMPLEMENT SAFETY MEASURE,CONTINUE TO MONITOR.
[2019-10-01 20:00] VITALS: BP 125/82
[2019-10-01] MEDS: TAMSULOSIN 0.4 MG CAP.SR.24H PO SCH (21:33)
[2019-10-01] MEDS: TRAZODONE 50 MG TABLET PO SCH (21:33)
[2019-10-01] MEDS: ATORVASTATIN 10 MG TABLET PO SCH (21:33)
--- NOTE | 2019-10-02 07:08 | NUR ---
RN CLOSING NOTE PATIENT REMAINS ALERT ORIENTED X2 VERBALLY RESPONSIVE ON 2L OXYGEN VIA NASAL CANNULA,NO SOB NOT ACUTE DISTRESS NOTED,ALL DUE MEDS GIVEN TOLERATED,KEPT CLEAN AND DRY ALL THE TIME,IMPLEMENTED SAFETY MEASURE,ALL NEEDS MET,ENDORSE NEXT COMING SHIFT FOR CONTINUATION OF CARE.
[2019-10-02] MEDS: PANTOPRAZOLE 40 MG TABLET.DR PO SCH (07:30)
[2019-10-02 08:00] VITALS: BP 120/57
[2019-10-02 08:03] LABS: BASOPHILS % (AUTO) 0.4 % (0.0-2.0); EOSINOPHILS % (AUTO) 0.3 % (0.0-6.0); HEMATOCRIT 37 % (39-51); HEMOGLOBIN 12.5 g/dL (13.5-17.5); LYMPHOCYTES % (AUTO) 10.1 % (20.0-44.0); MEAN CORPUSCULAR HGB CONC 34 g/dl (31.0-36.0); MEAN CORPUSCULAR VOLUME 85 fL (80-96); MONOCYTES # (AUTO) 1.4 /CMM (0.1-1.30); MONOCYTES % (AUTO) 13.6 % (2.0-12.0); NEUTROPHILS # (AUTO) 7.9 /CMM (1.8-8.9); NEUTROPHILS % (AUTO) 75.6 % (43.0-81.0); PLATELET COUNT (AUTO) 292 /CMM (150-450); RED BLOOD CELL COUNT(AUTO) 4.34 MIL/uL (4.5-6.0); WHITE BLOOD COUNT (AUTO) 10.4 K/uL (4.3-11.0)
--- NOTE | 2019-10-02 08:05 | NUR ---
RN OPENING NOTE RECEIVED PATIENT IN BED RESTING ALERT ORIENTED X2 VERBALLY RESPONSIVE,BREATHING IS SOB ON 2L OXYGEN VIA NASAL CANNULA,O2:97% CONTINUE TO MONITOR,IV SITE IS ON LEFT FOREARM,INTACT PATENT,CALL LIGHT WITHIN REACH,BED IN LOWEST POSITION,IMPLEMENT SAFETY MEASURE,CONTINUE TO MONITOR.
[2019-10-02] MEDS: BLOOD SUGAR DIAGNOSTIC 1 EACH STRIP IN SCH ×4 (08:17→21:31)
[2019-10-02 08:30] LABS: CALCIUM, SERUM 8.5 mg/dL (8.5-10.1); MAGNESIUM 1.8 mg/dL (1.8-2.4); PHOSPHORUS 2.9 mg/dL (2.5-4.9); POTASSIUM 3.6 mmol/L (3.5-5.1)
[2019-10-02] MEDS: INSULIN REGULAR, HUMAN 100 UNIT/ML 3 ML VIAL SQ PRN ×4 (08:35→21:32)
[2019-10-02] MEDS: VANCOMYCIN 1 GM in IV D5W 250ml IV SCH ×2 (08:36→20:12)
[2019-10-02] MEDS: FOLIC ACID 1 MG TABLET PO SCH (08:37)
[2019-10-02] MEDS: MONTELUKAST SODIUM (10MG) 10 MG TABLET PO SCH (08:37)
[2019-10-02] MEDS: FERROUS SULFATE (325 MG) 325 MG/TAB TABLET PO SCH (08:37)
[2019-10-02] MEDS: THIAMINE HCL 100 MG TABLET PO SCH (08:37)
[2019-10-02] MEDS: LINAGLIPTIN 5 MG TABLET PO SCH (08:37)
[2019-10-02] MEDS: ESCITALOPRAM OXALATE (10 MG) 10 MG TABLET PO SCH (08:39)
[2019-10-02] MEDS: LISINOPRIL (20MG) 20 MG TABLET PO SCH (08:39)
[2019-10-02] MEDS: HALOPERIDOL 1 MG TABLET PO SCH ×2 (08:41→16:56)
[2019-10-02 16:00] VITALS: BP 129/69
--- NOTE | 2019-10-02 19:01 | NUR ---
MS RN CLOSING NOTES PATIENT RESTING IN BED COMFORTABLY; A/OX2; DIFICULTY BREATHING AT TIMES, PATIENT ON 4LPM VIA NC; TOLERATING WELL; PATIENT IV ACCESS; LFA #22 INTACT AND FLUSHING WELL; NO S/S OF REDNESS OR INFILTRATION NOTED; WRAPPED KERLIX;INCONTINENT OF B&B, HAD A BM X 2 ALL NEEDS RENDERED; BED LOCKED IN LOW POSITION; SIDE RAILSX2; CALL LIGHT WITHIN REACH; WILL ENDORSE TO ONCOMING SHIFT
--- NOTE | 2019-10-02 19:47 | NUR ---
MS RN OPENING NOTES PATIENT RECEIVED RESTING IN BED A/O X 2-3. ON 2L OF O2 TOLERATING WELL. NO SIGNS OF ACUTE DISTRESS. NO COMPLAINTS OF PAIN OR DISCOMFORT. IV LOCATED ON L FA #22. SAFETY PRECAUTIONS IN PLACE WITH BED IN LOWEST POSITION, CALL LIGHT WITHIN REACH, BREAKS ON, SIDE RAILS UP. WILL CONTINUE TO MONITOR THROUGHOUT THE NIGHT.
[2019-10-02 20:00] VITALS: BP 129/70
[2019-10-02] MEDS: ACETAMINOPHEN 325 MG TABLET PO PRN (20:12)
--- NOTE | 2019-10-02 20:22 | NUR ---
MS RN NOTES PATIENT T 100.5 PRN TYLENOL ADMINISTERED AND COOLING MEASURES INITIATED. WILL CONTINUE TO MONITOR THROUGHOUT THE NIGHT.
[2019-10-02] MEDS: TRAZODONE 50 MG TABLET PO SCH (21:27)
[2019-10-02] MEDS: ATORVASTATIN 10 MG TABLET PO SCH (21:27)
[2019-10-02] MEDS: TAMSULOSIN 0.4 MG CAP.SR.24H PO SCH (21:27)
[2019-10-03] MEDS: BLOOD SUGAR DIAGNOSTIC 1 EACH STRIP IN SCH ×4 (06:55→21:45)
[2019-10-03] MEDS: INSULIN REGULAR, HUMAN 100 UNIT/ML 3 ML VIAL SQ PRN ×4 (06:55→21:48)
--- NOTE | 2019-10-03 06:59 | NUR ---
MS RN CLOSING NOTES PATIENT RECEIVED RESTING IN BED A/O X 2-3. ON 2L OF O2 TOLERATING WELL. NO SIGNS OF ACUTE DISTRESS. NO COMPLAINTS OF PAIN OR DISCOMFORT. IV LOCATED ON L FA #22. SAFETY PRECAUTIONS IN PLACE WITH BED IN LOWEST POSITION, CALL LIGHT WITHIN REACH, BREAKS ON, SIDE RAILS UP. ALL NEEDS ATTENDED TO. PATIENT KEPT CLEAN AND DRY. PATIENT TEMP LOWERED TO 98.6. WILL ENDORSE TO ONCOMING SHIFT ABOUT [place].
[2019-10-03 07:00] LABS: CALCIUM, SERUM 8.5 mg/dL (8.5-10.1); CREATININE 1.1 mg/dL (0.6-1.3); POTASSIUM 3.8 mmol/L (3.5-5.1)
--- NOTE | 2019-10-03 07:30 | NUR ---
MS/RN OPENING NOTES Patient received resting in bed with HOB elevated, A& O x 3. No complaints of pain/discomfort at this time. Breathing even and non-labored on 2L oxygen via NC. No respiratory or cardiac distress noted. IV located on L FA #22, patent and intact, and flushing well. Sensation from all peripheral extremities noted. Fall precautions maintained. Will continue to monitor patient for any changes in condition.
[2019-10-03 08:00] VITALS: BP 102/63
[2019-10-03] MEDS: MONTELUKAST SODIUM (10MG) 10 MG TABLET PO SCH (08:08)
[2019-10-03] MEDS: HALOPERIDOL 1 MG TABLET PO SCH ×2 (08:08→16:49)
[2019-10-03] MEDS: THIAMINE HCL 100 MG TABLET PO SCH (08:08)
[2019-10-03] MEDS: ESCITALOPRAM OXALATE (10 MG) 10 MG TABLET PO SCH (08:08)
[2019-10-03] MEDS: PANTOPRAZOLE 40 MG TABLET.DR PO SCH (08:08)
[2019-10-03] MEDS: FOLIC ACID 1 MG TABLET PO SCH (08:09)
[2019-10-03] MEDS: LINAGLIPTIN 5 MG TABLET PO SCH (08:09)
[2019-10-03] MEDS: FERROUS SULFATE (325 MG) 325 MG/TAB TABLET PO SCH (08:09)
[2019-10-03] MEDS: VANCOMYCIN 1 GM in IV D5W 250ml IV SCH ×2 (08:14→20:10)
[2019-10-03] MEDS: LISINOPRIL (20MG) 20 MG TABLET PO SCH (08:26)
--- NOTE | 2019-10-03 10:45 | NUR ---
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 Notified Dr. Body and contact precautions implemented.
[2019-10-03 16:00] VITALS: BP 143/70
[2019-10-03] MEDS: HYDROCODONE/APAP 5/325MG 1 EACH TABLET PO PRN (16:50)
--- NOTE | 2019-10-03 19:12 | NUR ---
MS/RN OPENING NOTES Patient received resting in bed , A& O x 3. No complaints of pain/discomfort at this time, last norco given at 1650. Breathing even and non-labored on 2L oxygen via NC. No respiratory or cardiac distress noted. IV located on L FA #22, patent and intact, and flushing well. Sensation from all peripheral extremities noted. Fall precautions maintained. Will endorse to supervisor contingents nurse.
--- NOTE | 2019-10-03 19:13 | NUR ---
CORRECTION: MS/RN CLOSING NOTES BELOW
[2019-10-03 20:00] VITALS: BP 110/71
[2019-10-03] MEDS: TRAZODONE 50 MG TABLET PO SCH (22:11)
[2019-10-03] MEDS: ATORVASTATIN 10 MG TABLET PO SCH (22:12)
[2019-10-03] MEDS: TAMSULOSIN 0.4 MG CAP.SR.24H PO SCH (22:12)
[2019-10-04] MEDS: BLOOD SUGAR DIAGNOSTIC 1 EACH STRIP IN SCH ×4 (06:32→21:45)
--- NOTE | 2019-10-04 06:48 | NUR ---
MS RN CLOSING NOTES PATIENT RESTING IN BED A/O X 2-3. ON 2L OF O2 TOLERATING WELL. NO SIGNS OF ACUTE DISTRESS. NO COMPLAINTS OF PAIN OR DISCOMFORT. IV LOCATED ON L FA #22. SAFETY PRECAUTIONS IN PLACE WITH BED IN LOWEST POSITION, CALL LIGHT WITHIN REACH, BREAKS ON, SIDE RAILS UP. ALL NEEDS ATTENDED TO, PATIENT KEPT CLEAN AND DRY THROUGHOUT THE NIGHT. WILL ENDORSE TO ONCOMING SHIFT ABOUT [place].
[2019-10-04] MEDS: PANTOPRAZOLE 40 MG TABLET.DR PO SCH (07:30)
--- NOTE | 2019-10-04 07:30 | NUR ---
received pt. alert and oriented x2-3.no complaints offered.
[2019-10-04 08:00] VITALS: BP 131/82
[2019-10-04 08:20] LABS: BASOPHILS % (AUTO) 0.4 % (0.0-2.0); EOSINOPHILS % (AUTO) 2.2 % (0.0-6.0); HEMATOCRIT 40 % (39-51); HEMOGLOBIN 13.3 g/dL (13.5-17.5); LYMPHOCYTES # (AUTO) 1.1 /CMM (0.8-4.8); LYMPHOCYTES % (AUTO) 11.7 % (20.0-44.0); MEAN CORPUSCULAR HGB CONC 34 g/dl (31.0-36.0); MEAN CORPUSCULAR VOLUME 88 fL (80-96); MONOCYTES # (AUTO) 1.1 /CMM (0.1-1.30); MONOCYTES % (AUTO) 11.1 % (2.0-12.0); NEUTROPHILS # (AUTO) 7.3 /CMM (1.8-8.9); NEUTROPHILS % (AUTO) 74.6 % (43.0-81.0); PLATELET COUNT (AUTO) 341 /CMM (150-450); RED BLOOD CELL COUNT(AUTO) 4.52 MIL/uL (4.5-6.0); WHITE BLOOD COUNT (AUTO) 9.7 K/uL (4.3-11.0)
[2019-10-04] MEDS: VANCOMYCIN 1 GM in IV D5W 250ml IV SCH ×2 (08:24→20:09)
[2019-10-04 08:27] LABS: CALCIUM, SERUM 8.3 mg/dL (8.5-10.1); MAGNESIUM 2.2 mg/dL (1.8-2.4); PHOSPHORUS 2.9 mg/dL (2.5-4.9); POTASSIUM 3.3 mmol/L (3.5-5.1)
[2019-10-04] MEDS: LINAGLIPTIN 5 MG TABLET PO SCH (08:39)
[2019-10-04] MEDS: FERROUS SULFATE (325 MG) 325 MG/TAB TABLET PO SCH (08:41)
[2019-10-04] MEDS: LISINOPRIL (20MG) 20 MG TABLET PO SCH (08:41)
[2019-10-04] MEDS: HALOPERIDOL 1 MG TABLET PO SCH ×2 (08:41→18:51)
[2019-10-04] MEDS: MONTELUKAST SODIUM (10MG) 10 MG TABLET PO SCH (08:41)
[2019-10-04] MEDS: ESCITALOPRAM OXALATE (10 MG) 10 MG TABLET PO SCH (08:41)
[2019-10-04] MEDS: FOLIC ACID 1 MG TABLET PO SCH (08:41)
--- NOTE | 2019-10-04 08:44 | NUR ---
[employer] [facility] HELD [employer] [facility] MED WAS PULLED OUT AT 0600 AM.
[2019-10-04] MEDS: THIAMINE HCL 100 MG TABLET PO SCH (09:32)
[2019-10-04] MEDS ORDERED: POTASSIUM CHLORIDE 20 MEQ TAB.PRT.SR PO ONE (11:30)
[2019-10-04] MEDS: INSULIN REGULAR, HUMAN 100 UNIT/ML 3 ML VIAL SQ PRN ×3 (12:07→21:39)
--- NOTE | 2019-10-04 12:15 | NUR ---
given k-dur for low potassium.
[2019-10-04] MEDS ORDERED: LIDOCAINE 1% INJ 50 ML MDV IJ ONE (15:30)
[2019-10-04 16:00] VITALS: BP 128/68
--- NOTE | 2019-10-04 16:00 | NUR ---
estefania chavez in and aspiration done of rt. knee.gayle to lab.pt. tolerated well.dressing to site.
[2019-10-04 20:22] VITALS: BP 127/72
[2019-10-04] MEDS: TRAZODONE 50 MG TABLET PO SCH (21:32)
[2019-10-04] MEDS: TAMSULOSIN 0.4 MG CAP.SR.24H PO SCH (21:32)
[2019-10-04] MEDS: ATORVASTATIN 10 MG TABLET PO SCH (21:32)
[2019-10-05] VITALS (9 sets, daily range): BP systolic 102–136; BP diastolic 66–92
[2019-10-05] MEDS: INSULIN REGULAR, HUMAN 100 UNIT/ML 3 ML VIAL SQ PRN ×2 (06:35→21:45)
[2019-10-05] MEDS: BLOOD SUGAR DIAGNOSTIC 1 EACH STRIP IN SCH ×4 (06:35→21:40)
--- NOTE | 2019-10-05 06:49 | NUR ---
MS RN CLOSING NOTES PATIENT RESTING IN BED A/O X 2-3. ON RA OF O2 TOLERATING WELL. NO SIGNS OF ACUTE DISTRESS. NO COMPLAINTS OF PAIN OR DISCOMFORT. IV LOCATED ON L FA #22. SAFETY PRECAUTIONS IN PLACE WITH BED IN LOWEST POSITION, CALL LIGHT WITHIN REACH, BREAKS ON, SIDE RAILS UP. ALL NEEDS ATTENDED TO. PATIENT KEPT CLEAN AND DRY. WILL ENDORSE TO ONCOMING SHIFT ABOUT [place].
[2019-10-05 06:57] LABS: CALCIUM, SERUM 8.1 mg/dL (8.5-10.1); CREATININE 1.1 mg/dL (0.6-1.3); POTASSIUM 3.5 mmol/L (3.5-5.1)
--- NOTE | 2019-10-05 07:30 | NUR ---
RECEIVED PT. THIS AM ALERT AND ORIENTED X2-3.NO COMPLAINTS OFFERED.DRESSING RT KNEE FROM YESTERDAY'S ASPIRATION DRY AND INTACT.
[2019-10-05] MEDS: VANCOMYCIN 1 GM in IV D5W 250ml IV SCH ×2 (08:07→20:00)
[2019-10-05] MEDS: PANTOPRAZOLE 40 MG TABLET.DR PO SCH (08:07)
[2019-10-05] MEDS: FERROUS SULFATE (325 MG) 325 MG/TAB TABLET PO SCH (08:22)
[2019-10-05] MEDS: MONTELUKAST SODIUM (10MG) 10 MG TABLET PO SCH (08:23)
[2019-10-05] MEDS: ESCITALOPRAM OXALATE (10 MG) 10 MG TABLET PO SCH (08:23)
[2019-10-05] MEDS: HALOPERIDOL 1 MG TABLET PO SCH ×2 (08:23→17:00)
[2019-10-05] MEDS: THIAMINE HCL 100 MG TABLET PO SCH (08:23)
[2019-10-05] MEDS: LISINOPRIL (20MG) 20 MG TABLET PO SCH (08:23)
[2019-10-05] MEDS: FOLIC ACID 1 MG TABLET PO SCH (08:23)
[2019-10-05] MEDS: HYDROCODONE/APAP 5/325MG 1 EACH TABLET PO PRN (08:26)
--- NOTE | 2019-10-05 08:26 | NUR ---
GIVEN NORCO FOR RT. KNEE PAIN.
--- NOTE | 2019-10-05 08:30 | NUR ---
JERARDO COPE NOW CALLING IN WITH ORDERS.NPO FOR SURG. THIS AFTERNOON.
[2019-10-05] MEDS: LINAGLIPTIN 5 MG TABLET PO SCH (09:00)
[2019-10-05] MEDS ORDERED: ANESTHESIA TRAY IN PYXIS 1 EA TRAY MC ONE (14:11)
--- NOTE | 2019-10-05 15:31 | NUR ---
NO CHANGE IN STATUS.
--- NOTE | 2019-10-05 15:42 | NUR ---
PER DR. ARROYO'S NOTES,OK'D FOR SURG. TODAY.
--- NOTE | 2019-10-05 17:14 | NUR ---
to or via bed.dentures at bedside,transporter alecia wells informed heart rate 49.
--- NOTE | 2019-10-05 17:24 | NUR ---
8pm raul picked up BY JUNE HIGUERA AND TAKEN TO OR.
[2019-10-05] MEDS ORDERED: BACITRACIN 50000 UNITS/VIAL ONE ×2 (17:41)
[2019-10-05] MEDS ORDERED: AMIODARONE 150 MG/3 ML VIAL IV ONE (17:55)
[2019-10-05] MEDS ORDERED: FENTANYL PF 100MCG/2ML AMPUL ONE (18:16)
[2019-10-05] MEDS ORDERED: POTASSIUM CHLORIDE 20 MEQ TAB.PRT.SR PO STA ×2 (18:41→18:59)
--- NOTE | 2019-10-05 19:10 | NUR ---
zoo caretaker opening notes Received Pt from morning nurse. Pt just came from R knee arthroscopy washout with drain placement. Pt is laying in bed comfortably. Pt is alert and orientedX2-3. Respiration is normal. No SOB. No S/S of distress noted. VS is stable. R knee dressing is intact, clean and dry. R drainage is intact, patent and clean, no fluids noted. IV sites at LFA# 22 is clean, intact and flush without resistance. Safety precautions is maintained. Contact precautions is maintained. Bed at low position, brakes locked, HOB elevated, off loaded, side railsupX2 and call light is within reach. Will continue to monitor.
--- NOTE | 2019-10-05 19:50 | NUR ---
MS RN notes Informed and notified Markel Busch regarding potassium 20 meq/2 tabs/po/once. Pt potassium in am was 3.5. Per OR nurse JUNE Johnson Pt received potassium 10 meq IV. ordered to give potassium as ordered. Pt's is on tele with multiple PVC. Ordered carried out. Charge nurse is aware and informed. Will continue to monitor. Addendum: 10/05/19 at 2320 by DEB OQUENDO RN nail galvanizer notes
--- NOTE | 2019-10-05 20:05 | NUR ---
JUNE posey Did not administered Vanco 1 gm that is due at 1999. Per am nurse Ignacia, OR nurse JUNE Johnson gave vanco at the OR. Verified with OR nurse JUNE Johnson. JUNE Johnson confirmed that Pt received vanco at the OR. Called and notified [facility] about vanco that Pt received in OR. Will continue to monitor. Addendum: 10/05/19 at 2321 by DEB OQUENDO RN Grisel posey
[2019-10-05] MEDS: TAMSULOSIN 0.4 MG CAP.SR.24H PO SCH (21:28)
[2019-10-05] MEDS: ATORVASTATIN 10 MG TABLET PO SCH (21:28)
[2019-10-05] MEDS: TRAZODONE 50 MG TABLET PO SCH (21:28)
[2019-10-06] VITALS (7 sets, daily range): BP systolic 97–131; BP diastolic 50–70
[2019-10-06] MEDS: BLOOD SUGAR DIAGNOSTIC 1 EACH STRIP IN SCH ×3 (06:36→17:21)
[2019-10-06] MEDS: INSULIN REGULAR, HUMAN 100 UNIT/ML 3 ML VIAL SQ PRN ×2 (06:39→11:58)
[2019-10-06] MEDS: PANTOPRAZOLE 40 MG TABLET.DR PO SCH (06:45)
--- NOTE | 2019-10-06 06:56 | NUR ---
design editor closing notes Pt is resting in bed comfortably. Pt is alert and orientedX2-3. Respiration is normal. No SOB. No S/S of distress noted. VS is stable. Afebrile. Routine meds were given as ordered. Tele monitor showed SR with R knee dressing is intact, clean and dry. R drainage is intact, patent, clean and dry. IV sites at LFA# 22 is clean, intact and flush without resistance. Safety precautions is maintained. Contact precautions is maintained. Kept Pt clean, dry and comfortable. Wound care provided as ordered for L foot. All needs met and attended. Bed at low position, brakes locked, HOB elevated, off loaded, side railsupX2 and call light is within reach. Will endorse to morning nurse for [place]. Addendum: 10/06/19 at 0735 by DEB OQUENDO RN Tele monitor showed SR with multiple PVS. R knee dressing is intact, clean and dry.
[2019-10-06 07:15] LABS: CALCIUM, SERUM 8.2 mg/dL (8.5-10.1); CREATININE 1.1 mg/dL (0.6-1.3); POTASSIUM 4.6 mmol/L (3.5-5.1)
--- NOTE | 2019-10-06 07:30 | NUR ---
BOARD FINISHER NOTES PATIENT RECEIVED IN BED SLEEPING, EASILY AWAKEN BY NAME AND LIGHT TOUCH. ALERT AND ORIENTED X 2-3. ON ROOM AIR WITH NO RESPIRATORY DISTRESS AT THIS TIME, WITH EVEN NON-LABORED BREATHING, AND NO SOB NOTED. ON MISSILE MECHANIC MULTI-FOCAL PVC'S WITH RUN OF V-TACH, 80'S. PATIENT SKIN DRY AND DRESSING INTACT. IV ACCESS INTACT AND PATENT. CONTACT PRECAUTIONS IN PLACE. SAFETY PRECAUTIONS IMPLEMENTED WITH BED LOCKED, BED IN THE LOWEST POSITION, BED ALARM ON, BILATERAL SIDE RAILS UP, AND CALL LIGHT WITHIN EASY REACH OF PATIENT. WILL CONTINUE TO MONITOR PATIENT.
[2019-10-06] MEDS: VANCOMYCIN 1 GM in IV D5W 250ml IV SCH ×2 (08:20→19:11)
[2019-10-06] MEDS: FERROUS SULFATE (325 MG) 325 MG/TAB TABLET PO SCH (08:21)
[2019-10-06] MEDS: FOLIC ACID 1 MG TABLET PO SCH (08:21)
[2019-10-06] MEDS: HALOPERIDOL 1 MG TABLET PO SCH ×2 (08:21→17:21)
[2019-10-06] MEDS: LINAGLIPTIN 5 MG TABLET PO SCH (08:21)
[2019-10-06] MEDS: THIAMINE HCL 100 MG TABLET PO SCH (08:21)
[2019-10-06] MEDS: MONTELUKAST SODIUM (10MG) 10 MG TABLET PO SCH (08:21)
[2019-10-06] MEDS: ESCITALOPRAM OXALATE (10 MG) 10 MG TABLET PO SCH (08:21)
[2019-10-06] MEDS: LISINOPRIL (20MG) 20 MG TABLET PO SCH (08:37)
[2019-10-06] MEDS ORDERED: VANC1PLA9 IV (11:04)
[2019-10-06] MEDS: METOPROLOL TARTRATE 50 MG TABLET PO SCH ×2 (12:06→17:26)
--- NOTE | 2019-10-06 14:20 | NUR ---
RN NOTES PICC LINE PLACEMENT DONE, BY JUNE GARDNER. CONFIRMED PLACEMENT OF PICC LINE WITH CHEST X-RAY. WILL CONTINUE TO MONITOR PATIENT.
--- NOTE | 2019-10-06 15:00 | NUR ---
RN NOTES SPOKE WITH PATIENT'S CAREGIVER HENRI MALONEY . INFORMED PATIENT DISCHARGING TODAY AFTER LAST ANTIBIOTIC DOSE OF VANCOMYCIN. CAREGIVER VERBALIZED UNDERSTANDING, AND PATIENT MADE AWARE WELL. WILL CONTINUE TO MONITOR PATIENT.
[2019-10-06] MEDS: HYDROCODONE/APAP 5/325MG 1 EACH TABLET PO PRN (18:14)
--- NOTE | 2019-10-06 18:14 | NUR ---
RN NOTES PATIENT COMPLAINING OF ACHING/SHARP PAIN ON RIGHT LEG. PROVIDED COMFORT MEASURES TO AND REQUESTING PAIN MEDICATION. ADMINISTERED PRN NORCO PO ORDERED. WILL CONTINUE TO MONITOR PATIENT.
--- NOTE | 2019-10-06 18:41 | NUR ---
CHAINSTITCH ELASTIC ATTACHER NOTES PATIENT IN BED AWAKE, ALERT AND ORIENTED X 2-3. ON ROOM AIR WITH NO RESPIRATORY DISTRESS AT THIS TIME, WITH EVEN NON-LABORED BREATHING, AND NO SOB NOTED. ON SCRAP SHEAR OPERATOR MULTI-FOCAL PVC'S WITH RUN OF V-TACH, 80'S. PATIENT SKIN KEPT CLEAN, DRY, AND DRESSING INTACT. IV PICC LINE ACCESS INTACT AND PATENT. MET ALL OF PATIENT'S NEEDS. SAFETY PRECAUTIONS IMPLEMENTED WITH BED LOCKED, BED IN THE LOWEST POSITION, BED ALARM ON, BILATERAL SIDE RAILS UP, AND CALL LIGHT WITHIN EASY REACH OF PATIENT. WILL ENDORSE PLAN OF CARE TO UPCOMING NURSE.
--- NOTE | 2019-10-06 19:15 | NUR ---
PULP COOKER OPENING NOTES RECEIVED PATIENT IN BED AWAKE ALERT AND ORIENTED X3, ABLE TO MAKE NEEDS KNOWN RESPIRATIONS EVEN AND UNLABORED WITH EQUAL RISE AND FALL OF CHEST, DENIES ANY PAIN OR DISCOMFORT AT THIS TIME, IV SITE TO LEFT FA INTACT AND PATENT, RIGHT UPPER ARM PICC LINE INTACT AND PATENT, NO REDNESS, NO INFILTRATION PRESENT DRESSING IS C/D/I. RIGHT LEG NOTED WITH SINCERE BANDAGE AND BRACE/IMMOBILIZER IN PLACE. DRESSING TO LEFT FOOT SITE INTACT AND CLEAN. CURRENTLY RECEIVING ANTIBIOTIC VANCOMYCIN ORDERED PRIOR TO DISCHARGE, PATIENT IS SCHEDULED FOR DISCHARGE PATIENT STATES CAREGIVER AMARA WILL PICK HIM UP. ORIENTED TO STAFF AND CALL LIGHT AND KEPT WITHIN REACH, AT THIS TIME REMAINS STABLE ALL NEEDS ATTENDED, WILL CONTINUE TO MONITOR, SPOKE TO AMARA HENRI [phone] WHOM SAID HE WILL BE HERE AT 9PM FOR PRESS BREAKER, VS WNL.DENTURES ARE WITH PATIENT, ALL BELONGINGS AND DISCHARGE PAPERWORK WITH PATIENT.
--- NOTE | 2019-10-06 19:15 | NUR ---
ASSISTANT FILM EDITOR NOTES ON BOOTMAKER SR WITH PVC'S 75 NO DISTRESS PRESENT.
--- NOTE | 2019-10-06 21:10 | NUR ---
CARBON PLANT GRINDER NOTES PATIENT IN STABLE CONDITION , CAREGIVER AMARA HERE FOR FINANCIAL SYSTEMS ADMINISTRATOR WITH PERSONAL CAR. ALL BELONGINGS AND DISCHARGE PAPERWORK GIVEN TO PATIENT AND AMARA, LEFT FA IV SITE REMOVED, NO BLEEDING, PATIENT SAFELY WHEELED TO PERSONAL TRANSPORTATION AND SAFELY PLACED IN PRIVATE CAR. LEFT IN STABLE CONDITION. DOSE OF VANCOMYCIN COMPLETE.
== END 2019-10-06 21:00 | disposition home health service (06) | DRG 423 ==
LOC: ER 13:14 → TELE1 16:57 → MEDSG1 09-29 11:36 → MED 09-29 12:40 → TELE 09-29 15:25 → MED 09-29 16:20 → TELE 10-05 21:45
PROVIDERS: ATTEND Internal Medicine
PROC: 0JBR0ZZ Excision of Left Foot Subcutaneous Tissue and Fascia, Open Approach (ICD-10-PCS; principal; 2019-09-30)
PROC: 0SBC4ZZ Excision of Right Knee Joint, Percutaneous Endoscopic Approach (ICD-10-PCS; 2019-10-05)
PROC: 3E1U48Z Irrigation of Joints using Irrigating Substance, Percutaneous Endoscopic Approach (ICD-10-PCS; 2019-10-05)
PROC: 02HV33Z Insertion of Infusion Device into Superior Vena Cava, Percutaneous Approach (ICD-10-PCS; 2019-10-06)
PROC: B548ZZA Ultrasonography of Superior Vena Cava, Guidance (ICD-10-PCS; 2019-10-06)
DX: K74.60 Unspecified cirrhosis of liver (principal); G92 Toxic encephalopathy; N17.0 Acute kidney failure with tubular necrosis; M00.861 Arthritis due to other bacteria, right knee; L03.115 Cellulitis of right lower limb; K76.6 Portal hypertension; L97.528 Non-pressure chronic ulcer of other part of left foot with other specified severity; F05 Delirium due to known physiological condition; Z86.73 Personal history of transient ischemic attack (TIA), and cerebral infarction without residual deficits; E87.6 Hypokalemia; E83.42 Hypomagnesemia; E11.22 Type 2 diabetes mellitus with diabetic chronic kidney disease; E78.5 Hyperlipidemia, unspecified; I12.9 Hypertensive chronic kidney disease with stage 1 through stage 4 chronic kidney disease, or unspecified chronic kidney disease; N18.9 Chronic kidney disease, unspecified; E11.621 Type 2 diabetes mellitus with foot ulcer; E83.39 Other disorders of phosphorus metabolism; F15.90 Other stimulant use, unspecified, uncomplicated; F20.9 Schizophrenia, unspecified; E11.40 Type 2 diabetes mellitus with diabetic neuropathy, unspecified; Z88.2 Allergy status to sulfonamides; L84 Corns and callosities; M25.461 Effusion, right knee; F29 Unspecified psychosis not due to a substance or known physiological condition; M65.861 Other synovitis and tenosynovitis, right lower leg; N40.0 Benign prostatic hyperplasia without lower urinary tract symptoms; Z96.652 Presence of left artificial knee joint
CPT/HCPCS: 36415; 70450-TC; 71045-TC; 73564-TC; 80048-TC; 80053-TC; 80061-TC; 80076-TC; 80202-TC; 80305; 81000-TC; 82140-TC; 82550-TC; 82553; 82962-TC; 83605-TC; 83735-TC; 83880; 84100-TC; 84439-TC; 84443-TC; 84484-TC; 85025-TC; 85730-TC; 87040-TC; 87070-TC; 87075-TC; 87081-TC; 87086-TC; 89051-TC; 89060-TC; 93307-TC; 97110-TC; 97530-TC; A4217; A6253; A6403; C1751; G0378; G0480; J0282; J1100; J1815; J1885; J2060; J2270; J2370; J2405; J2704; J3010; J3370; J3475; J3490; J7040; J7050; J7060; L1830; U0003-CS

== ENCOUNTER 2019-11-07 14:33 | Inpatient (IN) | payer MEDICARE, OTHER ==
[~2019-11-07] VITALS: Ht 170.2 cm; Wt 82.6 kg
[~2019-11-07 14:33] MED LIST: ATOR20TA PO; ERGO500014 MT; ESCI10TA PO; FERR325T23 PO; LISI40TA4 PO; METO-357 PO; MONT10TA22 PO; SITA100T PO; TAMS-12 PO; TRAZ-252 PO; VANC1PLA9 IV; ZOLP5TAB8 PO
--- NOTE | 2019-11-07 14:41 | NUR ---
COLLEEN FROM [facility] C/O GENERALIZED WEAKNESS, LETHARGY AND SOB. ALSO C/O BRADYCARDIA AT 45BPM. TO ER BED 10, HOOKED TO MONITOR, CHANGED TO HOSP GOWN, WARM BLANKET PROVIDED, PATIENT AAO x 2, NOT IN RESPIRATORY DISTRESS. LAW AT BEDSIDE FOR EVAL.
[2019-11-07 15:10] LABS: BASOPHILS # (AUTO) 0.1 /CMM (0.0-0.2); BASOPHILS % (AUTO) 0.7 % (0.0-2.0); EOSINOPHILS % (AUTO) 5.4 % (0.0-6.0); HEMATOCRIT 36 % (39-51); HEMOGLOBIN 11.5 g/dL (13.5-17.5); LYMPHOCYTES # (AUTO) 1.3 /CMM (0.8-4.8); LYMPHOCYTES % (AUTO) 16.3 % (20.0-44.0); MEAN CORPUSCULAR HGB CONC 32 g/dl (31.0-36.0); MEAN CORPUSCULAR VOLUME 85 fL (80-96); MONOCYTES # (AUTO) 0.7 /CMM (0.1-1.30); MONOCYTES % (AUTO) 9.4 % (2.0-12.0); NEUTROPHILS # (AUTO) 5.3 /CMM (1.8-8.9); NEUTROPHILS % (AUTO) 68.2 % (43.0-81.0); PLATELET COUNT (AUTO) 249 /CMM (150-450); RED BLOOD CELL COUNT(AUTO) 4.21 MIL/uL (4.5-6.0); WHITE BLOOD COUNT (AUTO) 7.8 K/uL (4.3-11.0)
[2019-11-07 15:19] LABS: CALCIUM, SERUM 8.4 mg/dL (8.5-10.1); CARBON DIOXIDE 25 mmol/L (21-32); CHLORIDE 109 mmol/L (98-107); CREATININE 1.1 mg/dL (0.6-1.3); GLUCOSE 112 mg/dL (74-106); POTASSIUM 4.1 mmol/L (3.5-5.1); SODIUM SERUM 142 mmol/L (136-145); UREA NITROGEN, BLOOD 22 mg/dL (7-18)
[2019-11-07 15:32] LABS: ALANINE AMINOTRANSFERASE 18 U/L (12-78); ALBUMIN 2.9 g/dL (3.4-5.0); ALKALINE PHOSPHATASE 114 U/L (46-116); ASPARTATE AMINOTRANSFERASE 20 U/L (15-37); B-TYPE NATRIURETIC PEPTIDE 4954 PG/ML (0-125); BILIRUBIN,DIRECT 0.1 mg/dL (0.0-0.2); BILIRUBIN,TOTAL 0.6 mg/dL (0.2-1.0); TOTAL PROTEIN, SERUM 7.2 g/dL (6.4-8.2)
--- NOTE | 2019-11-07 15:47 | NUR ---
MOVED SHEET SUBMITTED.
[2019-11-07] MEDS ORDERED: FUROSEMIDE 40 MG/4 ML VIAL ONE (15:53)
[2019-11-07] MEDS ORDERED: FUROSEMIDE 40 MG/4 ML VIAL IV ONE (16:00)
--- NOTE | 2019-11-07 16:14 | NUR ---
ROOM GIVEN 104
--- NOTE | 2019-11-07 16:14 | NUR ---
GOING TO 104
--- NOTE | 2019-11-07 16:46 | NUR ---
DR HALL AT BEDSIDE
[2019-11-07] MEDS ORDERED: Z GUARD REMEDY 2 OZ OINT TP PRN (17:00)
[2019-11-07] MEDS ORDERED: ACETAMINOPHEN 325 MG TABLET PO PRN (17:00)
[2019-11-07] MEDS ORDERED: DEXTROSE 50%-WATER 50 ML DISP.SYRIN IV PRN (17:00)
[2019-11-07] MEDS ORDERED: ONDANSETRON HCL/PF 4 MG/2 ML VIAL IVP PRN (17:00)
[2019-11-07] MEDS ORDERED: MAGNESIUM HYDROXIDE 30 ML UDC PO PRN (17:00)
[2019-11-07] MEDS ORDERED: MAG HYDROX/AL HYDROX/SIMETH 30 ML UDC PO PRN (17:00)
--- NOTE | 2019-11-07 17:19 | NUR ---
REPORT GIVEN TO JENAE WATKINS OF TELE UNIT
--- NOTE | 2019-11-07 17:20 | NUR ---
JOSE ALFREDO RN NOTES RECEIVED REPORT FROM ER REPORT GIVEN BY HUNTER.
[2019-11-07] MEDS: ENOXAPARIN SODIUM 40 MG/0.4 ML DISP.SYRIN SQ SCH (18:27)
[2019-11-07] MEDS: FUROSEMIDE 40 MG/4 ML VIAL IV SCH (18:28)
[2019-11-07] MEDS: BLOOD SUGAR DIAGNOSTIC 1 EACH STRIP IN SCH ×2 (18:28→22:15)
[2019-11-07] MEDS: INSULIN REGULAR, HUMAN 100 UNIT/ML 3 ML VIAL SQ PRN (18:30)
--- NOTE | 2019-11-07 18:50 | NUR ---
JOSE ALFREDO TILE SPRAYER NOTES RECEIVED PT IN STRETCHER. PT IS ALERT AND ORIENTED X3. PT IS N/C 3L. PT RIGHT UPPER LINE PICC LINE IS FLUSHING WELL, INTACT AND NO INFILTRATION IS NOTED. SAFETY MEASUREMENTS ARE IMPLEMENTED. BED IS IN THE LOWEST POSITION. SIDE RAILS ARE UPX2. WILL ENDORSE TO NIGHTSHIFT NURSE. Addendum: 11/07/19 at 1929 by JENAE SANCHEZ RN JOSE ALFREDO CLOSING NOTES PT IS RESTING. PT IS ALERT AND ORIENTED X3. PT IS N/C 3L. PT RIGHT UPPER LINE PICC LINE IS FLUSHING WELL, INTACT AND NO INFILTRATION IS NOTED. SAFETY MEASUREMENTS ARE IMPLEMENTED. BED IS IN THE LOWEST POSITION. SIDE RAILS ARE UPX2. WILL ENDORSE TO NIGHTSHIFT NURSE.
[2019-11-07] MEDS: HYDROCODONE/APAP 5/325MG TABLET PO PRN (19:23)
--- NOTE | 2019-11-07 19:50 | NUR ---
RN OPENING NOTE PT RECEIVED IN THE BED. PT IS A/A/O X3. PT IS ON 3 L NC SATING 100%. NO SOB NOTED. PT HAS PATRICIA PICC LINE FLUSHES WELL. SAFETY MEASURES IN PLACE SIDE RAILS UP X2, BED AT LOWEST POSITION, LOCKED, CALL LIGHT IN REACH. Addendum: 11/08/19 at 0008 by CARLOS CRUZ RN MULTIPLE PVC NOTED WITH HR IN 80s.
[2019-11-07 20:00] VITALS: BP 120/79
[2019-11-07] MEDS: TRAZODONE 50 MG TABLET PO SCH (22:10)
[2019-11-07] MEDS: ATORVASTATIN 10 MG TABLET PO SCH (22:10)
[2019-11-07] MEDS: TAMSULOSIN 0.4 MG CAP.SR.24H PO SCH (22:10)
[2019-11-07] MEDS: ZOLPIDEM TARTRATE 5 MG TABLET PO PRN (23:15)
--- NOTE | 2019-11-07 23:54 | NUR ---
RN NOTE EKG RESULT TEXTED TO THE DR WAITING FOR HIM TO CALL BACK.
[2019-11-08] VITALS (8 sets, daily range): BP systolic 100–145; BP diastolic 57–94
--- NOTE | 2019-11-08 04:45 | NUR ---
RN NOTE RECEIVED AMIODARONE ORDER FROM DR. YUEN, ICU CHARGE NURSE MIXED THE MEDICATION.
[2019-11-08] MEDS ORDERED: AMIODARONE 150 MG/3 ML VIAL IV ONE (04:49)
[2019-11-08] MEDS ORDERED: AMIODARONE 150 MG in IV D5W 100 ML IV ONE (05:00)
[2019-11-08] MEDS ORDERED: AMIODARONE 450 MG in IV D5W 250 ML IV PRN (05:10)
[2019-11-08 06:23] LABS: BASOPHILS % (AUTO) 0.7 % (0.0-2.0); EOSINOPHILS % (AUTO) 2.1 % (0.0-6.0); HEMATOCRIT 38 % (39-51); HEMOGLOBIN 12.3 g/dL (13.5-17.5); LYMPHOCYTES # (AUTO) 1.4 /CMM (0.8-4.8); MEAN CORPUSCULAR HGB CONC 33 g/dl (31.0-36.0); MEAN CORPUSCULAR VOLUME 83 fL (80-96); MONOCYTES # (AUTO) 0.2 /CMM (0.1-1.30); MONOCYTES % (AUTO) 2.6 % (2.0-12.0); NEUTROPHILS # (AUTO) 4.6 /CMM (1.8-8.9); NEUTROPHILS % (AUTO) 72.6 % (43.0-81.0); PLATELET COUNT (AUTO) 286 /CMM (150-450); RED BLOOD CELL COUNT(AUTO) 4.55 MIL/uL (4.5-6.0); WHITE BLOOD COUNT (AUTO) 6.3 K/uL (4.3-11.0)
[2019-11-08 06:55] LABS: THYROID STIMULATING HORMONE 1.122 uIU/mL (0.358-3.74)
--- NOTE | 2019-11-08 07:05 | NUR ---
RN CLOSING NOTE PT REMAINED STABLE DURING MY SHIFT, REPORT GIVEN TO INCOMING SHIFT FOR [place].
[2019-11-08 07:24] LABS: CALCIUM, SERUM 8.4 mg/dL (8.5-10.1); CREATININE 1.2 mg/dL (0.6-1.3); MAGNESIUM 1.9 mg/dL (1.8-2.4); PHOSPHORUS 3.6 mg/dL (2.5-4.9); POTASSIUM 3.5 mmol/L (3.5-5.1)
--- NOTE | 2019-11-08 07:30 | NUR ---
received awake, no acute distress.
[2019-11-08] MEDS: BLOOD SUGAR DIAGNOSTIC 1 EACH STRIP IN SCH ×4 (07:52→22:34)
[2019-11-08] MEDS: FUROSEMIDE 40 MG/4 ML VIAL IV SCH ×3 (08:46→17:13)
[2019-11-08] MEDS: LINAGLIPTIN 5 MG TABLET PO SCH (08:46)
[2019-11-08] MEDS: LISINOPRIL (20MG) 20 MG TABLET PO SCH (08:47)
[2019-11-08] MEDS: FERROUS SULFATE (325 MG) 325 MG/TAB TABLET PO SCH (08:48)
[2019-11-08] MEDS: MONTELUKAST SODIUM (10MG) 10 MG TABLET PO SCH (08:48)
[2019-11-08] MEDS: ESCITALOPRAM OXALATE (10 MG) 10 MG TABLET PO SCH (08:51)
[2019-11-08] MEDS ORDERED: FUROSEMIDE 40 MG/4 ML VIAL IV SCH (09:30)
--- NOTE | 2019-11-08 10:07 | NUR ---
patient refussed to have pump on ble.
--- NOTE | 2019-11-08 10:31 | NUR ---
amiodarone drip stop per dr. priscilla zuluaga.
[2019-11-08] MEDS: POTASSIUM CHLORIDE 20 MEQ TAB.PRT.SR PO SCH ×3 (10:35→12:27)
--- NOTE | 2019-11-08 11:13 | NUR ---
patient w/ good urine output,on iv lasix and k replacement as ordered.will continue to monitor.
[2019-11-08] MEDS: INSULIN REGULAR, HUMAN 100 UNIT/ML 3 ML VIAL SQ PRN (12:30)
--- NOTE | 2019-11-08 12:38 | NUR ---
patient completed k replacement.no acute distress.
--- NOTE | 2019-11-08 14:11 | NUR ---
PATIENT COVID NEGATIVE, MADE AWARE,AWAITS NONCOVID ROOM TELE ,NURSING SUP MADE AWARE.
--- NOTE | 2019-11-08 15:20 | NUR ---
Left message to caregiver Kilo Ortiz [phone] requesting call back to case mgt to discuss dc planning needs. Per report, patient resides at home with his caregiver. He was ambulating with a walker and requires mod assist with adl's. Was on service with [facility] [phone]. Current dc plan is to return home. Addendum: 11/08/19 at 2109 by BRAYDEN LOUIS RN Amended: Links added.
--- NOTE | 2019-11-08 16:15 | NUR ---
STILL AWAITS NONCOVID ROOM FROM NURSING SUP.MD MADE AWARE OF KNEE DRAIN/IMMOBILIZER ,PER MD WILL REEVALUATE IN AM IF NEED ORTHO,NEW ORDERS OBTAINED AND CARRIED OUT.
[2019-11-08] MEDS: HYDROCODONE/APAP 5/325MG TABLET PO PRN (16:25)
--- NOTE | 2019-11-08 17:32 | NUR ---
piccline both port flushed w/ sarah saline patent.completed lasix dose.no acute distress.
--- NOTE | 2019-11-08 17:42 | NUR ---
report given to [place].
[2019-11-08] MEDS ORDERED: NORMAL SALINE FLUSH 10 ML SYR IV PRN (18:00)
--- NOTE | 2019-11-08 18:13 | NUR ---
transferred to tele via bed,report given to scar,belongings endorsed.
--- NOTE | 2019-11-08 18:16 | NUR ---
MS RN RECEIVED A NEW TRANSFER PATIENT, FROM JO[facility] ALFREDO, AWAKE,ALERT,ORIENTED X3,NOT IN ANY FOR OF DISTRESS, RESPIRATION EVEN AND UNLABORED,NO SOB NOTED, SR W/ PVC ON MONITOR, INTACT HEMOVAC AT RIGHT LEG, NO OUTPUT AT THIS TIME, DENIES PAIN ,WILL MONITOR PATIENT'S, CONDITION .
--- NOTE | 2019-11-08 18:20 | NUR ---
message left to caregiver regarding new room number.
--- NOTE | 2019-11-08 19:30 | NUR ---
telephone mechanic opening note received patient in bed. a/ox3. on oxygen 2l/min via nasal cannula. respirations are even and unlabored. no s/s sob noted. no c/o pain at this time. external tele monitor reads sinus rhythm with BBB with bigeminy with trigeminy hr 97. in no apparent distress. iv access in PATRICIA PICC line patent and saline locked. wound vac located in right knee. bed is low and locked, hob elevated in semi fowlers, side rials up x2, call light within reach. will continue to monitor.
[2019-11-08] MEDS ORDERED: NORMAL SALINE FLUSH 10 ML SYR IV SCH (21:00)
[2019-11-08] MEDS: ATORVASTATIN 10 MG TABLET PO SCH (22:00)
[2019-11-08] MEDS: ENOXAPARIN SODIUM 40 MG/0.4 ML DISP.SYRIN SQ SCH (22:34)
[2019-11-08] MEDS: TRAZODONE 50 MG TABLET PO SCH (22:34)
[2019-11-08] MEDS: TAMSULOSIN 0.4 MG CAP.SR.24H PO SCH (22:34)
--- NOTE | 2019-11-08 22:45 | NUR ---
telemedicine physician note did not administer lipid as scheduled d/t recreation activities coordinator note reads "LIPIDS, LOW, AVOID STATIN WITH HX CIRRHOSIS". will continue to monitor.
[2019-11-09] VITALS (31 sets, daily range): BP systolic 60–132; BP diastolic 38–83
[2019-11-09] MEDS: ZOLPIDEM TARTRATE 5 MG TABLET PO PRN (00:53)
--- NOTE | 2019-11-09 00:55 | NUR ---
teletype adjuster note administered prn Ambien 5mg per patient request for sleep. bed alarm on. will continue to monitor.
[2019-11-09 06:23] LABS: BASOPHILS % (AUTO) 0.6 % (0.0-2.0); EOSINOPHILS % (AUTO) 4.6 % (0.0-6.0); HEMATOCRIT 39 % (39-51); HEMOGLOBIN 12.8 g/dL (13.5-17.5); LYMPHOCYTES # (AUTO) 1.8 /CMM (0.8-4.8); LYMPHOCYTES % (AUTO) 23.2 % (20.0-44.0); MEAN CORPUSCULAR HGB CONC 33 g/dl (31.0-36.0); MEAN CORPUSCULAR VOLUME 82 fL (80-96); MONOCYTES # (AUTO) 0.9 /CMM (0.1-1.30); MONOCYTES % (AUTO) 11.7 % (2.0-12.0); NEUTROPHILS # (AUTO) 4.7 /CMM (1.8-8.9); NEUTROPHILS % (AUTO) 59.9 % (43.0-81.0); PLATELET COUNT (AUTO) 326 /CMM (150-450); RED BLOOD CELL COUNT(AUTO) 4.76 MIL/uL (4.5-6.0); WHITE BLOOD COUNT (AUTO) 7.9 K/uL (4.3-11.0)
[2019-11-09] MEDS: BLOOD SUGAR DIAGNOSTIC 1 EACH STRIP IN SCH ×4 (06:39→21:19)
[2019-11-09 06:53] LABS: ALANINE AMINOTRANSFERASE 22 U/L (12-78); ALKALINE PHOSPHATASE 109 U/L (46-116); ASPARTATE AMINOTRANSFERASE 21 U/L (15-37); CALCIUM, SERUM 8.8 mg/dL (8.5-10.1); CARBON DIOXIDE 26 mmol/L (21-32); CHLORIDE 103 mmol/L (98-107); CREATININE 1.5 mg/dL (0.6-1.3); GLUCOSE 128 mg/dL (74-106); MAGNESIUM 1.8 mg/dL (1.8-2.4); PHOSPHORUS 3.9 mg/dL (2.5-4.9); POTASSIUM 3.8 mmol/L (3.5-5.1); SODIUM SERUM 140 mmol/L (136-145); TOTAL PROTEIN, SERUM 7.7 g/dL (6.4-8.2); UREA NITROGEN, BLOOD 32 mg/dL (7-18)
--- NOTE | 2019-11-09 06:56 | NUR ---
telegraphic typewriter operator chief closing note patient in bed. a/ox3. remains on oxygen 2l/min via nasal cannula. respirations are even and unlabored. no resp distress noted. no c/o pain t/o shift. external tele monitor reads sinus rhythm to sinus tach with BBB with bigeminy with trigeminy. no distress. iv access maintained in PATRICIA PICC line patent and saline locked. wound vac maintained in right knee. bed remains low and locked, hob elevated in semi fowlers, side rials up x2, call light within reach. will endorse to next shift.
--- NOTE | 2019-11-09 07:25 | NUR ---
SUSPECT ARTIST SUPERVISOR NOTES PATIENT RECEIVED IN BED, EATING BREAKFAST SITING COMFORTABLY. ALERT AND ORIENTED X 3. ON NASAL CANNULA 2 LITERS, WITH NO SIGNS OF RESPIRATORY DISTRESS AT THIS TIME, WITH EVEN NON-LABORED BREATHING AND NO SOB NOTED. ON CHANNEL SPECIALIST, SINUS TACH 107 WITH RUN OFF PVC'S. PATIENT SKIN WARM AND DRY IV ACCESS INTACT AND PATENT. PATIENT PRESENTS WITH NO PAIN OR DISCOMFORT AT THIS TIME. SAFETY PRECAUTIONS IMPLEMENTED WITH BED LOCKED, BED IN THE LOWEST POSITION, BILATERAL SIDE RAILS UP, AND CALL LIGHT WITHIN EASY REACH OF PATIENT. WILL CONTINUE TO MONITOR PATIENT.
[2019-11-09] MEDS ORDERED: ENOXAPARIN SODIUM 30 MG/0.3 ML DISP.SYRIN SQ SCH (09:00)
[2019-11-09] MEDS: LISINOPRIL (20MG) 20 MG TABLET PO SCH (09:00)
[2019-11-09] MEDS: MONTELUKAST SODIUM (10MG) 10 MG TABLET PO SCH (09:02)
[2019-11-09] MEDS: LINAGLIPTIN 5 MG TABLET PO SCH (09:02)
[2019-11-09] MEDS: ESCITALOPRAM OXALATE (10 MG) 10 MG TABLET PO SCH (09:02)
[2019-11-09] MEDS: FERROUS SULFATE (325 MG) 325 MG/TAB TABLET PO SCH (09:02)
--- NOTE | 2019-11-09 09:35 | NUR ---
DIRECTOR RECREATION CENTER NOTES INFORMED HOSPITALIST BASHIR SAEED, ABOUT PATIENT'S DECREASED BLOOD PRESSURE. INFORMED TO HOLD LASIX DOSE AND TO CONTINUE TO MONITOR PATIENT'S VITALS. WILL CARRY OUT AND FOLLOW ORDERS.
[2019-11-09] MEDS: FUROSEMIDE 100 MG/10 ML VIAL IV SCH ×4 (10:00→18:00)
[2019-11-09] MEDS ORDERED: ENOXAPARIN SODIUM 40 MG/0.4 ML DISP.SYRIN SQ SCH (10:00)
--- NOTE | 2019-11-09 10:30 | NUR ---
FARMWORKER [employer]YER [employer]ARM NOTES INFORMED DR ARROYO ABOUT PATIENT'S RECENT BLOOD PRESSURE. INFORMED TO TRANSFER PATIENT. SPOKE WITH HOSPITALIST BASHIR SAEED ORDERED IV BOLUS 250mL. WILL CARRY OUT ORDERS AND TRANSFER PATIENT TO ICU.
[2019-11-09] MEDS ORDERED: IV NS 0.9% 250 ML IV ONE (11:00)
[2019-11-09] MEDS ORDERED: NOREPINEPHRINE 8 MG in IV NS 0.9% 242 ML IV PRN (11:00)
--- NOTE | 2019-11-09 11:00 | NUR ---
RECEIVED REPORT FROM JUNE ESQUIVEL FOR CONTINUITY OF CARE. NO ACUTE DISTRESS NOTED AT THIS TIME. VSS. BP WNL, SATING WELL ON 2L/IN VIA NC. SAFETY MEASURES IMPLEMENTED, BED IN LOWEST POSITION, LOCKED, SIDE RAILS UP, CALL LIGHT WITHIN REACH. WILL CONTINUE TO MONITOR PATIENT FOR CHANGES.
--- NOTE | 2019-11-09 11:27 | NUR ---
PER KRISTEN SAEED, HOLD 1000 DOSE OF LASIX D/T HYPOTENSION.
[2019-11-09] MEDS: POTASSIUM CHLORIDE 20 MEQ TAB.PRT.SR PO SCH ×2 (11:35→12:40)
--- NOTE | 2019-11-09 11:55 | NUR ---
RESIDENTIAL CARE OFFICER NOTES TRANSFERRED PATIENT TO ICU, PATIENT WAS ALERT AND ORIENTED AND RESPONSIVE WITH NAME AND LIGHT TOUCH. TOLERATING NASAL CANNULA AT 2 LITERS. IV ACCESS INTACT AND PATENT. DENIES ANY PAIN AT THIS TIME. SPOKE WITH GILBERTO WATKINS AND REPORT GIVEN.
--- NOTE | 2019-11-09 12:05 | NUR ---
PATIENT'S BEDSIDE MONITOR IS SHOWING MULTIPLE PVC, BIGEMINAL, TRIGEMINAL COUPLETS, CONTACTED DR ARROYO TO INFORM HIM AND ORDERED STAT EKG
--- NOTE | 2019-11-09 12:16 | NUR ---
SENT DR ARROYO THE 12 LEAD EKG RESULTS, PER MD, THAT IS PATIENT'S BASELINE. NNO AT THIS TIME. WILL CONTINUE TO MONITOR PATIENT FOR CHANGES.
--- NOTE | 2019-11-09 12:44 | NUR ---
PER DR. ARROYO, HOLD FOLLOWING DOSES OF LASIX.
--- NOTE | 2019-11-09 14:10 | NUR ---
GAVE REPORT TO JUNE ARORA FOR CONTINUITY OF CARE.
--- NOTE | 2019-11-09 14:15 | NUR ---
RN NOTE: Received report from JUNE Waddell for [place]. Patient in stable condition. Call light in reach. Bed locked, low and at semi-collins's position. Side rails up x3. Safety ensured and observed. Will continue to monitor.
--- NOTE | 2019-11-09 18:30 | NUR ---
RN NOTE: Lasix dose was already prepared before RN reviewed nurse notes about Dr. Rios ordering doses ordered to be held. Medication not given to patient and discarded accordingly and witnessed by JUNE Mike.
--- NOTE | 2019-11-09 19:15 | NUR ---
[facility] DENTAL LAB TECHNICIAN. INITIAL ASSESSMENT. RECEIVED THE PT REST ON THE BED. AWAKE, ALERT FOLLOW COMMANDS. FINGER BUFFS ASSEMBLER SHOWING NSR. IV RT UPPER ARM PICC LINE. SALINE LOCK. OXYGEN 2L VIA NASAL CANNULA. SAT 98^. NO ACUTE DISTRESS NOTED. WILL CONTINUE TO MONITOR VITALS.
--- NOTE | 2019-11-09 19:20 | NUR ---
RN CLOSING NOTE: Patient remains in bed. Awake, alert and oriented x4. On cont. 02 via NC @ 2lpm. Labored breathing and some shortness of breath noted at times. No pain reported by patient. Endorsed by JUNE Waddell to hold following doses of Lasix per Dr. Rios. Strict I & O on patient. Tele monitor showing sinus rhythm in the 90s. Spoke with sister and her desire to have patient be discharged to somewhere close to her, informed her that Case Management will deal with those matters and will inform them. Unable to reach Case Management and left Voicemail so they can f/u when available. Call light in reach. Bed locked, low and at semi-collins's position. Side rails up x3. Safety ensured and observed. Due medications given. Treatment given as ordered. Endorsed to oncoming shift for [place].
[2019-11-09 20:51] LABS: CALCIUM, SERUM 8.7 mg/dL (8.5-10.1); CARBON DIOXIDE 27 mmol/L (21-32); CHLORIDE 104 mmol/L (98-107); CREATININE 1.9 mg/dL (0.6-1.3); GLUCOSE 114 mg/dL (74-106); SODIUM SERUM 140 mmol/L (136-145); UREA NITROGEN, BLOOD 41 mg/dL (7-18)
[2019-11-09] MEDS: TRAZODONE 50 MG TABLET PO SCH (21:12)
[2019-11-09] MEDS: ATORVASTATIN 10 MG TABLET PO SCH (21:12)
[2019-11-09] MEDS: ENOXAPARIN SODIUM 40 MG/0.4 ML DISP.SYRIN SQ SCH (21:12)
[2019-11-09] MEDS: TAMSULOSIN 0.4 MG CAP.SR.24H PO SCH (21:12)
[2019-11-10] VITALS (37 sets, daily range): BP systolic 77–147; BP diastolic 35–105
--- NOTE | 2019-11-10 04:01 | NUR ---
agricultural equipment test engineer. am care, done, oxygen 2l via nasal cannula, sat 98%. no acute distress noted. school bus monitor showing nsr. iv rt upper arm picc line. saline lock. hob elevated, rt leg immobilizer intact. afebrile. hob elevated, will continue to monitor vitals.
[2019-11-10 05:45] LABS: BASOPHILS % (AUTO) 0.5 % (0.0-2.0); EOSINOPHILS % (AUTO) 4.4 % (0.0-6.0); HEMATOCRIT 40 % (39-51); HEMOGLOBIN 12.9 g/dL (13.5-17.5); LYMPHOCYTES # (AUTO) 1.9 /CMM (0.8-4.8); LYMPHOCYTES % (AUTO) 21.6 % (20.0-44.0); MEAN CORPUSCULAR HGB CONC 33 g/dl (31.0-36.0); MEAN CORPUSCULAR VOLUME 83 fL (80-96); MONOCYTES # (AUTO) 1.2 /CMM (0.1-1.30); MONOCYTES % (AUTO) 13.6 % (2.0-12.0); NEUTROPHILS # (AUTO) 5.2 /CMM (1.8-8.9); NEUTROPHILS % (AUTO) 59.9 % (43.0-81.0); PLATELET COUNT (AUTO) 337 /CMM (150-450); RED BLOOD CELL COUNT(AUTO) 4.79 MIL/uL (4.5-6.0); WHITE BLOOD COUNT (AUTO) 8.7 K/uL (4.3-11.0)
[2019-11-10 06:13] LABS: ALANINE AMINOTRANSFERASE 24 U/L (12-78); ALBUMIN 3.2 g/dL (3.4-5.0); ALKALINE PHOSPHATASE 109 U/L (46-116); ASPARTATE AMINOTRANSFERASE 26 U/L (15-37); BILIRUBIN,TOTAL 0.9 mg/dL (0.2-1.0); CARBON DIOXIDE 26 mmol/L (21-32); CHLORIDE 105 mmol/L (98-107); CREATININE 1.6 mg/dL (0.6-1.3); GLUCOSE 123 mg/dL (74-106); POTASSIUM 4.7 mmol/L (3.5-5.1); SODIUM SERUM 141 mmol/L (136-145); TOTAL PROTEIN, SERUM 7.9 g/dL (6.4-8.2); UREA NITROGEN, BLOOD 40 mg/dL (7-18)
--- NOTE | 2019-11-10 07:15 | NUR ---
RN INITIAL NOTES RECEIVED PT AWAKE, A/0. ON 02 VIA NC AT 2LPM. HOB ELEVATED. NO RESPIRATORY DISTRESS NOTED. DENIES ANY PAIN. PATRICIA PICC IN PLACE. DRESSING ON RIGHT KNEE CLEAN AND DRY. PT CONTINENT. BLE ELEVATED. CALL LIGHT WITHIN REACH. WILL MONITOR
[2019-11-10] MEDS: BLOOD SUGAR DIAGNOSTIC 1 EACH STRIP IN SCH ×4 (07:42→21:24)
[2019-11-10] MEDS: MONTELUKAST SODIUM (10MG) 10 MG TABLET PO SCH (08:38)
[2019-11-10] MEDS: LINAGLIPTIN 5 MG TABLET PO SCH (08:38)
[2019-11-10] MEDS: LISINOPRIL (20MG) 20 MG TABLET PO SCH (08:38)
[2019-11-10] MEDS: ESCITALOPRAM OXALATE (10 MG) 10 MG TABLET PO SCH (08:38)
[2019-11-10] MEDS: FERROUS SULFATE (325 MG) 325 MG/TAB TABLET PO SCH (08:38)
[2019-11-10] MEDS: IV NS 0.9% 1,000 ML IV PRN ×3 (10:09→20:24)
[2019-11-10 11:43] LABS: ABG BASE EXCESS -2.3 mmol/L; ABG OXYGEN SATURATION 95.6 % (92.0-98.5); ABG PCO2 37.2 mmHg (35.0-45.0); ABG PH 7.392 (7.350-7.450); AaDO2 69.7 mmHg; COHb 0.8 % (0.5-1.5); MetHb 0.1 % (0.0-1.5); O2Hb 94.7 % (94.0-97.0); SITE, ABG Left Radial; VENT MODE, BG N/C 2LPM
--- NOTE | 2019-11-10 18:22 | NUR ---
RN CLOSING NOTES NO SIGNIFICANT CHANGE NOTED. PT REMAINS A/O. NO RESPIRATORY DISTRESS NOTED. NO SOB NOTED. DENIES ANY PAIN. KEPT COMFORTABLE. BLE ELEVATED. CALL LIGHT WITHIN REACH. WILL ENDORSE FOR CONTINUITY OF CARE.
--- NOTE | 2019-11-10 20:00 | NUR ---
Received patient A/OX4.VS stable.Respiration even and unlabored.With O2 2L NC sating 98%. SR per monitor.Moves all extremities.Right Knee dressing C/D/I with immobilizer in place.Skin warm to touch,pulses palpable.Denies pain or sob.IVF infusing well to PATRICIA PICC Line,site intact. Continue monitoring.Safety precaution maintain with call light at bedside.Bed in low position and locked.Frequent rounding implemented.
[2019-11-10] MEDS: MUPIROCIN OINT 2% 22 GM TUBE NS SCH (21:11)
[2019-11-10] MEDS: ENOXAPARIN SODIUM 40 MG/0.4 ML DISP.SYRIN SQ SCH (21:12)
[2019-11-10] MEDS: TRAZODONE 50 MG TABLET PO SCH (21:13)
[2019-11-10] MEDS: ATORVASTATIN 10 MG TABLET PO SCH (21:13)
[2019-11-10] MEDS: TAMSULOSIN 0.4 MG CAP.SR.24H PO SCH (21:13)
[2019-11-10] MEDS ORDERED: ZOLPIDEM TARTRATE 5 MG TABLET PO ONE (22:00)
[2019-11-11] VITALS (20 sets, daily range): BP systolic 88–132; BP diastolic 26–79
[2019-11-11 04:32] LABS: BASOPHILS % (AUTO) 0.5 % (0.0-2.0); EOSINOPHILS % (AUTO) 6.6 % (0.0-6.0); HEMATOCRIT 36 % (39-51); HEMOGLOBIN 11.8 g/dL (13.5-17.5); LYMPHOCYTES # (AUTO) 1.6 /CMM (0.8-4.8); MEAN CORPUSCULAR HGB CONC 33 g/dl (31.0-36.0); MEAN CORPUSCULAR VOLUME 83 fL (80-96); MONOCYTES # (AUTO) 0.9 /CMM (0.1-1.30); MONOCYTES % (AUTO) 11.7 % (2.0-12.0); NEUTROPHILS # (AUTO) 4.7 /CMM (1.8-8.9); NEUTROPHILS % (AUTO) 60.2 % (43.0-81.0); PLATELET COUNT (AUTO) 301 /CMM (150-450); RED BLOOD CELL COUNT(AUTO) 4.32 MIL/uL (4.5-6.0); WHITE BLOOD COUNT (AUTO) 7.8 K/uL (4.3-11.0)
[2019-11-11 05:43] LABS: ALBUMIN 2.8 g/dL (3.4-5.0); BILIRUBIN,TOTAL 1.1 mg/dL (0.2-1.0); CALCIUM, SERUM 8.4 mg/dL (8.5-10.1); CREATININE 1.2 mg/dL (0.6-1.3); PHOSPHORUS 3.2 mg/dL (2.5-4.9); POTASSIUM 4.4 mmol/L (3.5-5.1); TOTAL PROTEIN, SERUM 6.9 g/dL (6.4-8.2)
--- NOTE | 2019-11-11 06:00 | NUR ---
Patient resting.VS remains stable.SR/SB 50's non sustaining.Denies pain or sob.Patient desat to 80's on RA.With O2 2L NC on sating 96%-98%.IVF infusing well.All due medications given. Continent B/B.No BM noted during the shift.Turned self in bed.Was given sleeping pill as requested. With good night sleep.Safety precaution maintained.Call light at bedside.Will endorse to day shift for janene.
[2019-11-11] MEDS: IV NS 0.9% 1,000 ML IV PRN ×2 (06:12→19:33)
[2019-11-11] MEDS: BLOOD SUGAR DIAGNOSTIC 1 EACH STRIP IN SCH ×4 (07:56→22:26)
[2019-11-11] MEDS: MUPIROCIN OINT 2% 22 GM TUBE NS SCH ×2 (08:01→22:14)
[2019-11-11] MEDS: FERROUS SULFATE (325 MG) 325 MG/TAB TABLET PO SCH (08:02)
[2019-11-11] MEDS: LINAGLIPTIN 5 MG TABLET PO SCH (08:02)
[2019-11-11] MEDS: MONTELUKAST SODIUM (10MG) 10 MG TABLET PO SCH (08:02)
[2019-11-11] MEDS: ESCITALOPRAM OXALATE (10 MG) 10 MG TABLET PO SCH (08:02)
--- NOTE | 2019-11-11 08:33 | NUR ---
RN NOTE 0715: Received patient awake, A/Ox4. SB 50's with PVCs. PATRICIA PICC intact, IVF infusing as ordered. On 2LPM O2 via NC, titrated O2 off, will monitor. Right leg immobilizer in place. 0800: With order for CTCA, made patient aware and agreed and signed consent. With order of june transfer to Tele, CN aware. 0815: S/E by Jennifer PETERSON, no new order at this time. Awaiting CTCA and Tele transfer. 30: S/E by Dr. Motley, tolerated room air. Awaiting Tele room.
[2019-11-11] MEDS ORDERED: IOHEXOL-350 100 ML VIAL IV ONE (11:40)
[2019-11-11] MEDS ORDERED: IV NS 0.9% 250 ML IV ONE (11:41)
[2019-11-11] MEDS ORDERED: METOPROLOL TARTRATE INJ 5 MG/5 ML AMPUL ONE (12:00)
[2019-11-11] MEDS ORDERED: NITROGLYCERIN 0.4 MG/TAB BOTTLE SL ONE (12:00)
[2019-11-11] MEDS ORDERED: NITROGLYCERIN 0.4 MG/TAB BOTTLE ONE (12:00)
[2019-11-11 12:07] LABS: *SPE A/G RATIO 0.8 (0.7-1.7); *SPE ALPHA-1-GLOBULIN 0.3 g/dL (0.0-0.4); *SPE ALPHA-2-GLOBULIN 0.9 g/dL (0.4-1.0); *SPE GLOBULIN, TOTAL 3.8 g/dL (2.2-3.9); *SPE M-SPIKE Not Observed g/dL (Not Observed); *SPEGAMMA GLOBULIN 1.6 g/dL (0.4-1.8)
[2019-11-11] MEDS: METOPROLOL TARTRATE INJ 5 MG/5 ML AMPUL IVP PRN ×3 (12:12→12:22)
--- NOTE | 2019-11-11 12:42 | NUR ---
POST CTA PROCEDURE WELL TOLERATED BY THE PT. PT IS NOT IN RESPIRATORY DISTRESS, V/S STABLE, KEPT RESTED AND COMFORTABLE. REPORT GIVEN TO JUNE ROLON FOR [place].
--- NOTE | 2019-11-11 13:00 | NUR ---
RN NOTE 1100: Patient went to CTCA, VSS. 1250: Patient back from [facility]CA, tolerated procedure, VSS.
--- NOTE | 2019-11-11 18:28 | NUR ---
RN NOTE No any significant changes. Still noted with SR with frequent PVCs. No CP or any discomfort. Kept clean, warm and dry. Needs attended. Kept call light at reach. MRSA iso maintained and observed. Transferred to tele 112-1 via bed using ACLS protocol. Endorsed care to Álvaro WATKINS for [place].
--- NOTE | 2019-11-11 20:00 | NUR ---
RN OPENING NOTE PT RECEIVED IN BED, A/A/O X4. PT IS ON RA SATING 96%, NO LABOR BREATHING. TELE MONITOR SHOWING SR AT 80sWITH OCCASIONAL PVCs . PT HAS PATRICIA PICC LINE FLUSHES WELL, AND PATENT NS RUNNING AT 100 ML/H. SAFETY MEASURES IN BED AT LOWEST POSITION, LOCKED, CALL LIGHT IN REACH, SIDE RAILS UP X2.
[2019-11-11] MEDS: ZOLPIDEM TARTRATE 5 MG TABLET PO PRN (21:36)
[2019-11-11] MEDS: TAMSULOSIN 0.4 MG CAP.SR.24H PO SCH (21:36)
[2019-11-11] MEDS: TRAZODONE 50 MG TABLET PO SCH (21:36)
[2019-11-11] MEDS: ATORVASTATIN 10 MG TABLET PO SCH (21:36)
[2019-11-11] MEDS: ENOXAPARIN SODIUM 40 MG/0.4 ML DISP.SYRIN SQ SCH (21:56)
[2019-11-12] VITALS: BP 113/68
[2019-11-12 04:00] VITALS: BP 126/88
[2019-11-12 06:45] LABS: BASOPHILS # (AUTO) 0.1 /CMM (0.0-0.2); BASOPHILS % (AUTO) 0.9 % (0.0-2.0); EOSINOPHILS % (AUTO) 5.4 % (0.0-6.0); HEMATOCRIT 33 % (39-51); LYMPHOCYTES # (AUTO) 1.4 /CMM (0.8-4.8); LYMPHOCYTES % (AUTO) 18.7 % (20.0-44.0); MEAN CORPUSCULAR HGB CONC 33 g/dl (31.0-36.0); MEAN CORPUSCULAR VOLUME 83 fL (80-96); MONOCYTES % (AUTO) 13.5 % (2.0-12.0); NEUTROPHILS # (AUTO) 4.7 /CMM (1.8-8.9); NEUTROPHILS % (AUTO) 61.5 % (43.0-81.0); PLATELET COUNT (AUTO) 283 /CMM (150-450); RED BLOOD CELL COUNT(AUTO) 4.04 MIL/uL (4.5-6.0); WHITE BLOOD COUNT (AUTO) 7.6 K/uL (4.3-11.0)
--- NOTE | 2019-11-12 07:00 | NUR ---
RN CLOSING NOTE PT REMAINED STABLE DURING MY SHIFT NO ACUTE CHANGES. REPORT GIVEN TO INCOMING SHIFT.
--- NOTE | 2019-11-12 07:32 | NUR ---
RECEIVED PATIENT IN BED. NO ACUTE DISTRESS NOTED. PATIENT ALERT & ORIENTED X3. PATIENT ON ROOM AIR, SATURATING WELL, BREATHING EVEN AND UNLABORED. PATIENT ON TRACKMAN, NORMAL SINUS RHYTHM NOTED. PATIENT RIGHT UPPER ARM PICC LINE IN PLACE, INTACT, PATENT, FLUSHED WELL. PATIENT SAFETY MEASURES MAINTAINED. CALL LIGHT WITHIN REACH. WILL CONTINUE TO MONITOR.
[2019-11-12 08:00] VITALS: BP 109/72
[2019-11-12 08:07] LABS: ALBUMIN 2.7 g/dL (3.4-5.0); BILIRUBIN,TOTAL 0.9 mg/dL (0.2-1.0); MAGNESIUM 1.9 mg/dL (1.8-2.4); PHOSPHORUS 2.8 mg/dL (2.5-4.9); POTASSIUM 3.7 mmol/L (3.5-5.1); TOTAL PROTEIN, SERUM 6.7 g/dL (6.4-8.2)
[2019-11-12] MEDS: BLOOD SUGAR DIAGNOSTIC 1 EACH STRIP IN SCH ×2 (08:17→12:07)
[2019-11-12] MEDS: FERROUS SULFATE (325 MG) 325 MG/TAB TABLET PO SCH (08:18)
[2019-11-12] MEDS: LINAGLIPTIN 5 MG TABLET PO SCH (08:18)
[2019-11-12] MEDS: ESCITALOPRAM OXALATE (10 MG) 10 MG TABLET PO SCH (08:18)
[2019-11-12] MEDS: MONTELUKAST SODIUM (10MG) 10 MG TABLET PO SCH (08:18)
[2019-11-12] MEDS: MUPIROCIN OINT 2% 22 GM TUBE NS SCH (08:19)
[2019-11-12] MEDS: IV NS 0.9% 1,000 ML IV PRN (08:23)
[2019-11-12] MEDS: INSULIN REGULAR, HUMAN 100 UNIT/ML 3 ML VIAL SQ PRN (08:33)
[2019-11-12 12:00] VITALS: BP 111/63
--- NOTE | 2019-11-12 15:30 | NUR ---
PATIENT PICKED UP BY TRANSPORT TO GO TO [facility]. REPORT GIVEN TO DONY Lan RN. PATIENT DISCHARGED IN STABLE CONDITION.
== END 2019-11-12 15:21 | DRG 291 ==
LOC: ER 14:40 → TELE1 16:15 → TELE-TD 11-08 06:51 → TELE1 11-08 13:50 → TELE 11-08 17:59 → ICU 11-09 11:09 → TELE1 11-11 18:08
PROVIDERS: ATTEND Nurse Practitioner Acute Care
DX: I13.0 Hypertensive heart and chronic kidney disease with heart failure and stage 1 through stage 4 chronic kidney disease, or unspecified chronic kidney disease (principal); N17.0 Acute kidney failure with tubular necrosis; I50.31 Acute diastolic (congestive) heart failure; K76.6 Portal hypertension; I69.354 Hemiplegia and hemiparesis following cerebral infarction affecting left non-dominant side; K74.60 Unspecified cirrhosis of liver; I48.91 Unspecified atrial fibrillation; J45.909 Unspecified asthma, uncomplicated; E11.22 Type 2 diabetes mellitus with diabetic chronic kidney disease; E78.5 Hyperlipidemia, unspecified; E86.1 Hypovolemia; F20.9 Schizophrenia, unspecified; N18.9 Chronic kidney disease, unspecified; Z87.891 Personal history of nicotine dependence; D64.9 Anemia, unspecified; Z88.2 Allergy status to sulfonamides; R00.1 Bradycardia, unspecified; F19.11 Other psychoactive substance abuse, in remission; I49.3 Ventricular premature depolarization; L84 Corns and callosities; I95.9 Hypotension, unspecified; E86.9 Volume depletion, unspecified; Z79.84 Long term (current) use of oral hypoglycemic drugs
CPT/HCPCS: 36415; 36600; 71045-TC; 75574; 76770-TC; 80048-TC; 80053-TC; 80061-TC; 80076-TC; 82803-TC; 82962-TC; 83735-TC; 83880; 84100-TC; 84155; 84165; 84443-TC; 84484-TC; 85025-TC; 85730-TC; 87081-TC; 97530-TC; A4216; G0378; J0282; J1650; J1815; J1940; J3490; J7030; J7050; J7060; Q9967; U0003-CS